=== PATIENT | male | born 2000 | race Caucasian/White ===

== ENCOUNTER 2019-12-27 06:04 | Emergency (ER) | payer MEDICAID, SELFPAY ==
--- NOTE | ~2019-12-27 | CT_ITS ---
EXAMINATION: CT abdomen pelvis w con DATE: 12/27/2019 07:27 INDICATION: Sepsis, abdominal pain and vomiting TECHNIQUE: Computed tomography (CT) of the abdomen and pelvis was performed back of Visipaque intrave nous contrast. Automated exposure control and iterative reconstruction technique were employed. The d ose-length product was 753.00 mGy-cm. COMPARISON: None FINDINGS: Scattered groundglass opacities throughout the bilateral lower lungs. Heart size is normal. No perica rdial or pleural effusion. Diffuse hepatic steatosis with focal sparing along the gallbladder fossa a nd more focal fat at the ligamentum teres. Gallbladder, spleen, pancreas, bilateral adrenal glands an d kidneys are normal. Fatty infiltration of the wall of the proximal colon likely related to body hab itus. There are few scattered colonic diverticula without adjacent inflammatory change to suggest div erticulitis. No bowel obstruction. Bladder is normal. No free intraperitoneal gas or fluid. No pathol ogically enlarged abdominal or pelvic lymphadenopathy. Mild lumbar dextrocurvature. IMPRESSION: 1. Groundglass opacities scattered throughout the bilateral lower lungs with differential including p neumonia, pulmonary edema and hypersensitivity pneumonitis. 2. Diffuse hepatic steatosis. Reviewed, dictated and finalized at location A. IMPRESSION: 1. Groundglass opacities scattered throughout the bilateral lower lungs with di fferential including pneumonia, pulmonary edema and hypersensitivity pneumoniti s. 2. Diffuse hepatic steatosis.
--- NOTE | ~2019-12-27 | XR_ITS ---
EXAMINATION: XR chest 1V portable DATE: 12/27/2019 06:54 INDICATION: Cough, heartburn, nausea and vomiting TECHNIQUE: frontal view of the chest was obtained. COMPARISON: Chest radiograph dated 12/19/2016 FINDINGS: Lung volumes are decreased with increased prominence of the bronchovascular markings. No focal airspa ce opacities, pleural effusion or pneumothorax. The cardiomediastinal silhouette is normal. Visualize d bones and soft tissues are unremarkable. IMPRESSION: 1. Increased prominence of the bronchovascular markings which is likely related to respiratory effort although differential would include mild pulmonary edema or bronchitis. Reviewed, dictated and finalized at location A.
[2019-12-27 06:11] VITALS: BP 132/79; PULSE 141; RESP 21; TEMP 36.3; O2SAT 96
--- NOTE | 2019-12-27 06:26 | ED.NAVMDI ---
HPI - Nausea/Vomiting/Diarrhea General Chief complaint: Nausea/Vomiting/Diarrhea <DO Glenn Valenzuela Last Filed: 12/27/19 06:33> Stated complaint: vomiting for days; fever <DO Glenn Valenzuela Last Filed: 12/27/19 06:33> Time Seen by Provider: 12/27/19 06:20 <Jacobo Hou DO - Last Filed: 12/27/19 06:33> Source: RN notes reviewed <Jacobo Hou DO - Last Filed: 12/27/19 06:33> History of Present Illness HPI Narrative: Patient presents emergency department from home for nausea and vomiting. Patient states symptoms began 3 days ago. States he is had numerous episodes of nausea and vomiting. Is been associated with subjective fevers as well as abdominal pain is described as cramping and diffuse throughout the abdomen. He states he has had a mild associated cough he denies any chest pain diarrhea or any other symptoms states he is taken no medications for the symptoms today. <DO Glenn Valenzuela Last Filed: 12/27/19 06:33> Related Data Allergies/Adverse reactions: Allergies Allergy/AdvReac Type Severity Reaction Status Date / Time No Known Allergies Allergy Verified 12/27/19 06:15 <DO Glenn Valenzuela Last Filed: 12/27/19 06:33> Review of Systems Review of Systems: Narrative: Gen.: Reports subjective fever ENT: Denies congestion Respiratory: Denies shortness of breath or cough CV: Denies chest pain or palpitations GI: See HPI denies burning, urgency, frequency or hematuria Musculoskeletal: Denies back pain or muscle pain Neuro: Denies numbness, tingling, weakness or focal weakness Skin: Denies rash Except as documented, all other systems reviewed and negative <DO Glenn Valenzuela Last Filed: 12/27/19 06:33> PMFSH Past Medical History Medical History: Medical History (Updated 12/27/19 @ 10:09 by Frieda Adame MD) Pulmonary embolism <DO Glenn Valenzuela Last Filed: 12/27/19 06:33> Social History Social History: Social History (Updated 12/27/19 @ 06:33 by Jacobo Hou DO) Smoking status: Never smoker Gender identity (if verbalized by the patient): Male <Jacobo Hou DO - Last Filed: 12/27/19 06:33> Exam Narrative: Exam Narrative: APPEARANCE: No acute distress, nontoxic, resting in bed HEENT: Normocephalic, atraumatic, OMM RESPIRATORY: No respiratory distress, clear to auscultation bilaterally with no rhonchi wheezing or rales CARDIOVASCULAR: Tachycardic and regular s murmur ABDOMINAL: Soft, nondistended, diffusely tender to palpation no rebound or guarding MUSCULOSKELETAl: Moves all extremities. No clubbing, cyanosis or edema. NEURO: Awake and alert. Following commands, speech normal, no focal deficits SKIN:: Warm, dry. Normal Color PSYCHIATRIC: Normal affect/mood <Jacobo Hou DO - Last Filed: 12/27/19 06:33> Course Vital Signs Vital signs: Vital Signs Temperature 36.3 C L 12/27/19 06:11 Pulse Rate 141 H 12/27/19 06:11 Respiratory Rate 21 H 12/27/19 06:11 Blood Pressure 132/79 12/27/19 06:11 Pulse Oximetry 96 12/27/19 06:11 Temperature 36.3 C L 12/27/19 06:11 Pulse Rate 101 H 12/27/19 08:13 Respiratory Rate 22 H 12/27/19 08:13 Blood Pressure 131/86 12/27/19 08:13 Pulse Oximetry 96 12/27/19 08:13 <Jacobo Hou DO - Last Filed: 12/27/19 06:33> Vital Signs Temperature 36.3 C L 12/27/19 06:11 Pulse Rate 141 H 12/27/19 06:11 Respiratory Rate 21 H 12/27/19 06:11 Blood Pressure 132/79 12/27/19 06:11 Pulse Oximetry 96 12/27/19 06:11 Temperature 36.3 C L 12/27/19 06:11 Pulse Rate 101 H 12/27/19 08:13 Respiratory Rate 22 H 12/27/19 08:13 Blood Pressure 131/86 12/27/19 08:13 Pulse Oximetry 96 12/27/19 08:13 <Frieda Adame MD - Last Filed: 09/11/20 10:09> MDM - Nausea/Vomiting/Diarrhea Differential Diagnosis Differential diagnosis: Likely food poisoning, gastroenteritis, drug-induced nausea and vomi
[2019-12-27 06:44] LABS: Basophils Absolute Auto 0.1 K/mm3 (0.0-0.1); Basophils Percent Auto 0.2 % (0.2-1.2); Hemoglobin 14.5 g/dL (14.0-18.0); Immature Granulocyte Absolute 0.16 K/mm3 (0.00-0.031); Immature Granulocyte Percent A 0.7 % (0-0.5); Lymphocytes Absolute Auto 1.85 K/mm3 (0.9-3.2); Lymphocytes Percent Auto 8.3 % (18.3-44.2); Mean Corpuscular HGB Conc 34.5 g/dl (32-36); Mean Corpuscular Hemoglobin 27.2 pg (26-34); Mean Corpuscular Volume 78.7 fl (80-100); Monocytes Absolute Auto 0.5 K/mm3 (0.1-0.6); Monocytes Percent Auto 2.3 % (2.6-8.5); Neutrophils Absolute Auto 19.7 K/mm3 (1.3-6.7); Neutrophils Percent Auto 88.5 % (45.5-73.1); Platelet Count Result 502 k/mm3 (150-375); Red Blood Count 5.34 M/mm3 (4.6-6.20); Red Cell Distribution Width 11.9 % (11.5-14.5); White Blood Count 22.3 K/mm3 (4.5-10.0)
[2019-12-27] MEDS: ONDANSETRON INJ 4 MG/2 ML VIAL IV PUSH (06:48)
[2019-12-27 06:49] LABS: Alanine Aminotransferase 22 U/L (4-50); Albumin Level 4.8 g/dL (3.5-5.1); Alkaline Phosphatase 115 U/L (38-126); Anion Gap 17 mmol/L (8-16); Aspartate Amino Transferase 30 U/L (17-59); Bilirubin,Total 0.9 mg/dL (0.2-1.3); Blood Urea Nitrogen 23 mg/dL (9-20); Calcium 9.8 mg/dL (8.4-10.2); Carbon Dioxide 18 mmol/L (22-30); Chloride 103 mmol/L (98-107); Estimated CRCL calculation 122 ml/min; Estimated Glomerular Filt Rate > 60; Glucose 153 mg/dL (75-110); Lipase 27 U/L (23-300); Potassium 3.3 mmol/L (3.4-5.0); Sodium 138 mmol/L (137-145)
[2019-12-27] MEDS: SODIUM CHLORIDE 0.9% IV 1,000 ML 999 ML IV CONT ×2 (06:52→08:13)
[2019-12-27 08:08] LABS: Add Urine Microscopic? YES; Appearance Urine Clear (Clear); Bilirubin Urine Negative (Negative); Blood Urine Negative (Negative); Color Urine Yellow (Yellow); Glucose Urine UA Negative (Negative); Ketones Urine 2+ mg/dL (Negative); Leukocyte Esterase Ur Negative LEU/UL (Negative); Mucus Urine Moderate /lpf; Nitrate Urine Negative (Negative); Protein Urine 1+ mg/dL (Negative); RBC Urine 0-2 /hpf (0-2); Squamous Epithelial Cell Urine Rare /hpf (Few); WBC Urine 0-3 /hpf
[2019-12-27 08:09] LABS: Specific Grav Ur > 1.060 (1.001-1.035)
[2019-12-27 08:13] VITALS: BP 131/86; PULSE 101; RESP 22; O2SAT 96
[2019-12-27 08:15] LABS: Lactic Acid Reflex 1.9 mmol/L (0.7-2.1)
[2019-12-27 09:15] LABS: Anion Gap 10 mmol/L (8-16); Blood Urea Nitrogen 19 mg/dL (9-20); Calcium 8.2 mg/dL (8.4-10.2); Carbon Dioxide 21 mmol/L (22-30); Chloride 108 mmol/L (98-107); Estimated CRCL calculation 170 ml/min; Estimated Glomerular Filt Rate > 60; Glucose 134 mg/dL (75-110); Potassium 3.5 mmol/L (3.4-5.0); Sodium 139 mmol/L (137-145)
[2019-12-28 13:40] LABS: SARS-CoV-2 RNA PCR Negative
== END 2019-12-27 10:08 | disposition home or self-care (01) ==
PROVIDERS: Emergency Medicine; Emergency Provider Emergency Medicine
DX: K52.9 Noninfective gastroenteritis and colitis, unspecified (principal); E86.0 Dehydration; R91.8 Other nonspecific abnormal finding of lung field; Z20.828 Contact with and (suspected) exposure to other viral communicable diseases
CPT/HCPCS: 36415; 71045; 74177; 80048; 80053; 81001; 83605; 83690; 85025; 87040; 87635; 96361; 96365; 96375; 99284; C9803; J0131; J2405; J7030; Q9967; U0003

== ENCOUNTER 2020-02-11 17:05 | Emergency (ER) | payer MEDICAID, SELFPAY ==
[2020-02-11 17:20] VITALS: BP 153/88; PULSE 100; RESP 18; TEMP 36.8; O2SAT 100
--- NOTE | 2020-02-11 18:54 | ED.GENADULT ---
HPI - General Adult General Chief complaint: Unspecified Stated complaint: bilateral foot pain Time Seen by Provider: 02/11/20 18:19 Source: patient and family History of Present Illness HPI narrative: 19-year-old male presents to emergency department for feeling of left foot coolness that started last night. Patient states he has never had this in the past before. He tried walking around to help with the symptoms. He has not taken any medications for the coolness. Patient denies any numbness or tingling. No current left leg pain. Denies any traumas or falls. Related Data Home Medications Medication Instructions Recorded Confirmed clonidine HCl 02/11/20 fluoxetine [Prozac] 40 mg PO DAILY 02/11/20 lorazepam 1 mg PO BID PRN 02/11/20 phenazopyridine [Azo] 02/11/20 tizanidine 2 mg PO TID PRN 02/11/20 Allergies Allergy/AdvReac Type Severity Reaction Status Date / Time No Known Allergies Allergy Verified 02/11/20 19:01 Review of Systems Review of Systems: Narrative: CONSTITUTIONAL: Denies fever, chills, or sweats. EYES: Denies visual changes, redness, or discharge. ENT: Denies rhinorrhea, congestion, sore throat, or otalgia. CARDIOVASCULAR: Denies chest pain, palpitations, or edema. RESPIRATORY: Denies cough or dyspnea. GASTROINTESTINAL: Denies abdominal pain, nausea, vomiting, or diarrhea. GENITOURINARY: Denies dysuria or hematuria. SKIN: Denies rash or itching. Left foot coolness feeling the skin MUSCULOSKELETAL: Denies back pain, joint pain, or myalgia. NEUROLOGIC: Denies headache, numbness, dizziness, or weakness. PSYCHIATRIC: Denies anxiety or depression. PMFSH Past Medical History Medical History Pulmonary embolism Social History Social History Smoking status: Never smoker Gender identity (if verbalized by the patient): Male Exam Narrative: Exam Narrative: GENERAL: Well-appearing, well-nourished, and in no acute distress. HEAD: Normocephalic, atraumatic. EYES: PERRLA and EOMI. ENT: Nares clear, no rhinorrhea or epistaxis. Mucous membranes moist. NECK: Supple. CHEST: Clear to auscultation. No respiratory distress. HEART: Regular rate and rhythm. No murmur heard. Normal peripheral pulses. ABDOMEN: Soft, nontender, nondistended, normal active bowel sounds. EXTREMITIES: Normal range of motion. No edema. SKIN: Warm, dry, no rash. NEURO: No focal deficits. Alert and oriented x3. PSYCH: Mild distress, anxious Course Vital Signs Vital signs: Vital Signs Temperature 36.8 C 02/11/20 17:20 Pulse Rate 100 02/11/20 17:20 Respiratory Rate 18 02/11/20 17:20 Blood Pressure 153/88 H 02/11/20 17:20 Pulse Oximetry 100 02/11/20 17:20 Temperature 36.7 C 02/11/20 20:00 Pulse Rate 99 02/11/20 20:00 Respiratory Rate 20 02/11/20 20:00 Blood Pressure 151/98 H 02/11/20 20:00 Pulse Oximetry 96 02/11/20 20:00 Medical Decision Making MDM Narrative Medical decision making narrative: 1929 -unremarkable physical exam of left foot. Patient has 2+ dorsalis pedis pulse of the left, capillary refill less than 2 seconds. Equal sensation to light touch of left foot bilaterally. No signs of vascular occlusion. Patient has full range of motion of the left lower extremity. Symptoms likely from vascular constriction that resolved. States he has an appointment with his medical provider on Monday. Counseled patient to return to emergency department if symptoms persist, worsen, or other concerns. Medical Records Medical records reviewed: Yes I reviewed the patient's medical records. Vital Signs Vital Signs: Vital Signs Temperature 36.8 C 02/11/20 17:20 Pulse Rate 100 02/11/20 17:20 Respiratory Rate 18 02/11/20 17:20 Blood Pressure 153/88 H 02/11/20 17:20 Pulse Oximetry 100 02/11/20 17:20 Temperature 36.7 C 02/11/20 20:00 Pulse Rate 99 02/11/20 20
[2020-02-11 19:00] VITALS: BP 151/99; PULSE 119; RESP 22; TEMP 36.8; O2SAT 95
[2020-02-11 19:08] VITALS: RESP 18; O2SAT 95
--- NOTE | 2020-02-11 19:13 | PC.NURSE ---
Patient requesting pain medication and is requesting the EDP to do a testicular exam.
[2020-02-11] MEDS: LORazepam (*CRX) 0.5 MG TABLET PO (19:19)
[2020-02-11 20:00] VITALS: BP 151/98; PULSE 99; RESP 20; TEMP 36.7; O2SAT 96
== END 2020-02-11 20:00 | disposition home or self-care (01) ==
PROVIDERS: Emergency Provider Emergency Medicine; PCP Internal Medicine
DX: R20.8 Other disturbances of skin sensation (principal); F41.9 Anxiety disorder, unspecified
CPT/HCPCS: 99283; A9270

== ENCOUNTER 2020-02-17 11:41 | Emergency (ER) | payer MEDICAID, SELFPAY ==
--- NOTE | ~2020-02-17 | US_ITS ---
EXAMINATION: US scrotum doppler DATE: 02/17/2020 13:00 INDICATION: Testicular pain TECHNIQUE: Testicular sonogram utilizing grayscale and Doppler COMPARISON: None. FINDINGS: The right testis measures 5 x 3.3 x 2.5 cm. The left testis measures 4.8 x 3.3 x 2.8 cm. Th ere is normal vascular flow to both testes. The right epididymis is normal with normal vascular flow. The left epididymis is normal with normal vascular flow. Small bilateral hydroceles are noted. IMPRESSION: 1. No sonographic correlate for the patient's symptoms. Reviewed, dictated and finalized at location A. TRICAL/INSTRUMENT TECHNICIAN
[2020-02-17 12:00] VITALS: BP 154/94; PULSE 124; RESP 24; TEMP 36.3; O2SAT 99
--- NOTE | 2020-02-17 12:41 | PC.NURSE ---
Pt to u/s via stretcher.
[2020-02-17 12:56] LABS: Add Urine Microscopic? YES; Appearance Urine Clear (Clear); Bilirubin Urine Negative (Negative); Blood Urine Negative (Negative); Color Urine Yellow (Yellow); Glucose Urine UA Negative (Negative); Ketones Urine 2+ mg/dL (Negative); Leukocyte Esterase Ur Negative LEU/UL (Negative); Nitrate Urine Negative (Negative); Protein Urine Negative (Negative); RBC Urine 0-2 /hpf (0-2); Specific Grav Ur 1.017 (1.001-1.035); Urobilinogen Urine Negative mg/dL (<2.0); WBC Urine 0-3 /hpf
--- NOTE | 2020-02-17 12:56 | ED.GENADULT ---
HPI - General Adult General Chief complaint: Urogenital-Male Stated complaint: would like his testicles looked at Time Seen by Provider: 02/17/20 12:09 Source: patient History of Present Illness HPI narrative: Patient is a 19 y/o male complaining intermittent bilateral testicular pain for last 2 weeks. He describes his pain as aching. There is no alleviating or exacerbating factor. He has no pain at this time. He denies any fever, chill, dysuria or discharge. He has some back pain. He states that he has not been eating or drinking for 1 1/2 days because he is so nervous about what's going on with his testicles. Related Data Home Medications Medication Instructions Recorded Confirmed clonidine HCl 02/11/20 fluoxetine [Prozac] 40 mg PO DAILY 02/11/20 lorazepam 1 mg PO BID PRN 02/11/20 phenazopyridine [Azo] 02/11/20 tizanidine 2 mg PO TID PRN 02/11/20 Allergies Allergy/AdvReac Type Severity Reaction Status Date / Time No Known Allergies Allergy Verified 02/17/20 12:05 Review of Systems Constitutional: Constitutional: Denies chills, Denies fever(s), Denies headache(s) and Denies weakness Eyes: Eyes: Denies blurry vision ENT: Denies headache(s) and Denies neck pain Cardiovascular: Cardiovascular: Denies chest pain and Denies dyspnea Respiratory: Respiratory: Denies cough and Denies dyspnea Gastrointestinal: Gastrointestinal: Denies abdominal pain, Denies diarrhea, Denies nausea and Denies vomiting Genitourinary: Genitourinary: Denies hematuria, Denies dysuria and Reports testicular pain Musculoskeletal: Musculoskeletal: Denies back pain and Denies neck pain Neurologic: Denies headache(s) and Denies weakness [facility] Past Medical History Medical History Pulmonary embolism Social History Social History Smoking status: Never smoker Gender identity (if verbalized by the patient): Male Exam Const: General: no acute distress and well developed Orientation/consciousness: oriented to person, oriented to place, oriented to time and patient oriented x3 HENMT: Head: normocephalic Ears: external ears normal General nose exam: Normal external nose present Eyes: General: appearance normal, both eyes and all related structures Conjunctivae: conjunctivae normal Neck: Neck: normal visual inspection and full ROM Chest: Chest palpation & inspection: normal inspection of the chest and no tenderness Resp: Effort & Inspection: normal respiratory effort Auscultation: clear to auscultation bilaterally Cardio: Rate: tachycardic Rhythm: regular rhythm GI: GI Palp: No abdominal tenderness and Yes Soft to palpation : Penis: Yes normal penis Scrotum: scrotum normal Testes: no masses and no testicular tenderness Skin: General skin exam: normal color and turgor normal Neuro: General: oriented to person, oriented to place, oriented to time and patient oriented x3 Cognition (Neuro): normal cognition Extrem: General: normal to inspection, full ROM and no pedal edema Psych: Appearance: grossly normal Mental Status: mental status grossly normal Affect: Anxious affect present Course Vital Signs Vital signs: Vital Signs Temperature 36.3 C L 02/17/20 12:00 Pulse Rate 124 H 02/17/20 12:00 Respiratory Rate 24 H 02/17/20 12:00 Blood Pressure 154/94 H 02/17/20 12:00 Pulse Oximetry 99 02/17/20 12:00 Temperature 36.3 C L 02/17/20 12:00 Pulse Rate 109 H 02/17/20 18:22 Respiratory Rate 16 02/17/20 18:22 Blood Pressure 143/97 H 02/17/20 18:22 Pulse Oximetry 98 02/17/20 18:22 Medical Decision Making Vital Signs Vital Signs: Vital Signs Temperature 36.3 C L 02/17/20 12:00 Pulse Rate 124 H 02/17/20 12:00 Respiratory Rate 24 H 02/17/20 12:00 Blood Pressure 154/94 H 02/17/20 12:00 Pulse Oximetry 99 02/17/20 12:00 Temperature 36.3 C L 02/17/20 12:00 Pulse
[2020-02-17 13:08] LABS: Basophils Percent Auto 0.3 % (0.2-1.2); Eosinophils Percent Auto 0.1 % (0-4.4); Hematocrit 45.2 % (42.0-52.0); Hemoglobin 15.8 g/dL (14.0-18.0); Immature Granulocyte Absolute 0.05 K/mm3 (0.00-0.031); Immature Granulocyte Percent A 0.4 % (0-0.5); Lymphocytes Absolute Auto 1.84 K/mm3 (0.9-3.2); Mean Corpuscular Hemoglobin 27.5 pg (26-34); Mean Corpuscular Volume 78.7 fl (80-100); Mean Platelet Volume 9.1 fl (7.4-10.4); Monocytes Absolute Auto 0.5 K/mm3 (0.1-0.6); Monocytes Percent Auto 4.4 % (2.6-8.5); Neutrophils Percent Auto 78.8 % (45.5-73.1); Platelet Count Result 404 k/mm3 (150-375); Red Blood Count 5.74 M/mm3 (4.6-6.20); White Blood Count 11.5 K/mm3 (4.5-10.0)
[2020-02-17 13:19] LABS: Anion Gap 19 mmol/L (8-16); Blood Urea Nitrogen 14 mg/dL (9-20); Calcium 10.3 mg/dL (8.4-10.2); Carbon Dioxide 16 mmol/L (22-30); Chloride 103 mmol/L (98-107); Estimated CRCL calculation 132 ml/min; Estimated Glomerular Filt Rate > 60; Glucose 145 mg/dL (75-110); Potassium 3.5 mmol/L (3.4-5.0); Sodium 138 mmol/L (137-145)
--- NOTE | 2020-02-17 13:42 | ECG_ITS ---
Measurements Intervals [place] Rate: 116 P: 36 [place]: 126 QRS: 55 QRSD: 78 T: 38 QT: 310 QTc: 431 Interpretive Statements SINUS TACHYCARDIA MINIMAL Q WAVES- INF/HIGH LAT LEADS CONSIDER ANTEROLATERAL INFARCT, AGE INDETERMINATE BORDERLINE ST-T WAVE ABNORMALITY- ANT/INF LEADS ABNORMAL ECG Electronically Signed On 02-17-2020 14:26:09 HIDE SPREADER by Arturo Ragsdale D.O.
[2020-02-17] MEDS: SODIUM CHLORIDE 0.9% IV 1,000 ML 999 ML IV CONT (13:55)
[2020-02-17 13:56] VITALS: BP 144/76; PULSE 118; RESP 18; O2SAT 100
[2020-02-17] MEDS: LORazepam INJ (*CRX) 2 MG/ML VIAL 1 MG IV PUSH (14:05)
[2020-02-17 15:22] VITALS: BP 118/99; PULSE 125; RESP 18; O2SAT 100
--- NOTE | 2020-02-17 15:27 | PC.NURSE ---
Called lab for TSH add on [id number]
--- NOTE | 2020-02-17 15:46 | PC.NURSE ---
called chem again, waiting call back about tsh test [phone]
[2020-02-17 16:06] VITALS: BP 139/79; PULSE 116; RESP 18; O2SAT 98
--- NOTE | 2020-02-17 16:40 | PC.NURSE ---
Called chem again (Opal), and added on the TSH [phone]
[2020-02-17 17:56] VITALS: BP 143/97; PULSE 109; RESP 16; O2SAT 98
[2020-02-17 18:22] VITALS: BP 143/97; PULSE 109; RESP 16; O2SAT 98
== END 2020-02-17 18:24 | disposition home or self-care (01) ==
PROVIDERS: Emergency Provider Emergency Medicine; PCP Internal Medicine
DX: N50.812 Left testicular pain (principal); N50.811 Right testicular pain; E86.0 Dehydration; I10 Essential (primary) hypertension; Z86.711 Personal history of pulmonary embolism; R00.0 Tachycardia, unspecified; R94.31 Abnormal electrocardiogram [ECG] [EKG]
CPT/HCPCS: 36415; 76870; 80048; 81001; 84443; 85025; 93005; 93976; 96361; 96374; 99284; J2060; J7030

== ENCOUNTER 2020-02-20 07:11 | Emergency (ER) | payer MEDICAID, SELFPAY ==
[2020-02-20] VITALS (17 sets, daily range): BP systolic 124–159; BP diastolic 70–95; PULSE 99–129; RESP 12–22; TEMP 36.9; O2SAT 95–100
--- NOTE | 2020-02-20 07:24 | ECG_ITS ---
Measurements Intervals [place] Rate: 127 P: 51 [place]: 122 QRS: 67 QRSD: 78 T: 55 QT: 320 QTc: 466 Interpretive Statements SINUS TACHYCARDIA MINIMAL Q WAVES- INFERIOR LEADS CONSIDER ANTEROLATERAL INFARCT, AGE INDETERMINATE BASELINE ARTIFACT- I, II, III, AVR, AVL, AVF ABNORMAL ECG Electronically Signed On 02-20-2020 9:15:39 DISASTER RECOVERY ANALYST by Arturo Ragsdale D.O.
[2020-02-20] MEDS: SODIUM CHLORIDE 0.9% IV 1,000 ML 999 ML IV CONT (07:52)
[2020-02-20] MEDS: LORazepam INJ (*CRX) 2 MG/ML VIAL 0.5 MG IV PUSH (07:52)
[2020-02-20 08:09] LABS: Basophils Absolute Auto 0.1 K/mm3 (0.0-0.1); Basophils Percent Auto 0.4 % (0.2-1.2); Eosinophils Percent Auto 0.3 % (0-4.4); Hematocrit 46.1 % (42.0-52.0); Hemoglobin 15.8 g/dL (14.0-18.0); Immature Granulocyte Absolute 0.06 K/mm3 (0.00-0.031); Immature Granulocyte Percent A 0.5 % (0-0.5); Lymphocytes Absolute Auto 1.81 K/mm3 (0.9-3.2); Lymphocytes Percent Auto 15.8 % (18.3-44.2); Mean Corpuscular HGB Conc 34.3 g/dl (32-36); Mean Corpuscular Hemoglobin 27.7 pg (26-34); Mean Corpuscular Volume 80.9 fl (80-100); Mean Platelet Volume 9.1 fl (7.4-10.4); Monocytes Absolute Auto 0.7 K/mm3 (0.1-0.6); Monocytes Percent Auto 5.7 % (2.6-8.5); Neutrophils Absolute Auto 8.9 K/mm3 (1.3-6.7); Neutrophils Percent Auto 77.3 % (45.5-73.1); Platelet Count Result 417 k/mm3 (150-375); Red Cell Distribution Width 13.2 % (11.5-14.5); White Blood Count 11.5 K/mm3 (4.5-10.0)
[2020-02-20 08:21] LABS: Anion Gap 18 mmol/L (8-16); Blood Urea Nitrogen 23 mg/dL (9-20); Calcium 10.3 mg/dL (8.4-10.2); Carbon Dioxide 19 mmol/L (22-30); Chloride 101 mmol/L (98-107); Estimated CRCL calculation 121 ml/min; Estimated Glomerular Filt Rate > 60; Glucose 129 mg/dL (75-110); Potassium 3.8 mmol/L (3.4-5.0); Sodium 138 mmol/L (137-145)
--- NOTE | 2020-02-20 08:47 | PC.NURSE ---
pt ambulated to the bathroom with no difficulty
--- NOTE | 2020-02-20 08:55 | ED.ARRPALP ---
HPI - Arrhythmia/Palpitations General Chief Complaint: Arrhythmia/Palpitations Stated Complaint: heart racing Time Seen by Provider: 02/20/20 07:19 History of Present Illness HPI narrative: Patient is a 19-year-old male who presents ER with heart palpitations. Reports he feels like his heart has been racing for the last 2 days. No chest pain or chest pressure. No nausea or vomiting. Associate with bad anxiety. Reports it all began after he ran out of his anxiety medication. [facility]. No alleviating factors. Related Data Home Medications Medication Instructions Recorded Confirmed clonidine HCl 02/11/20 fluoxetine [Prozac] 40 mg PO DAILY 02/11/20 lorazepam 1 mg PO BID PRN 02/11/20 phenazopyridine [Azo] 02/11/20 tizanidine 2 mg PO TID PRN 02/11/20 Allergies Allergy/AdvReac Type Severity Reaction Status Date / Time No Known Allergies Allergy Verified 02/20/20 07:36 Review of Systems Review of Systems: All systems reviewed & are unremarkable except as noted in HPI and below Constitutional: Constitutional: Denies chills, Denies fever(s) and Denies weakness ENT: Denies nasal congestion and Denies sore throat Cardiovascular: Cardiovascular: Reports rapid heart rate, Denies radiating jaw, neck or arm pain and Denies slow heart rate Respiratory: Respiratory: Denies cough and Denies dyspnea Gastrointestinal: Gastrointestinal: Denies abdominal pain, Denies nausea and Denies vomiting Psychiatric: Psychiatric: Reports anxiety PMFSH Past Medical History Medical History (Updated 02/20/20 @ 09:45 by Tanner Ma MD) Anxiety Pulmonary embolism Surgical History Surgical History (Updated 02/20/20 @ 08:56 by Tanner Ma MD) No pertinent past surgical history Social History Social History Smoking status: Never smoker Gender identity (if verbalized by the patient): Male Exam Narrative: Exam Narrative: GENERAL: Anxious-appearing, well-nourished, and in no acute distress. HEAD: Normocephalic, atraumatic. CHEST: Clear to auscultation. No respiratory distress. HEART: Tachycardic and regular. No murmur heard. Normal peripheral pulses. ABDOMEN: Soft, nontender, nondistended. EXTREMITIES: Normal range of motion. No edema. SKIN: Warm, dry, no rash. NEURO: Alert and oriented x3. PSYCH: Anxious mood with slightly pressured speech. Course Course Emergency Course: Patient hydrated informed of results. Symptoms felt to be related to his anxiety. Heart rate currently 102 bpm. Instructed him to follow-up with his mental health provider this afternoon. Vital Signs Vital signs: Vital Signs Temperature 98.5 F 02/20/20 07:15 Pulse Rate 125 H 02/20/20 07:15 Respiratory Rate 16 02/20/20 07:15 Blood Pressure 159/95 H 02/20/20 07:15 Pulse Oximetry 100 02/20/20 07:15 Temperature 98.5 F 02/20/20 07:15 Pulse Rate 125 H 02/20/20 07:15 Respiratory Rate 16 02/20/20 07:15 Blood Pressure 159/95 H 02/20/20 07:15 Pulse Oximetry 100 02/20/20 07:15 MDM - Arrhythmia/Palpitations Lab Data Result diagrams: 02/20/20 07:54 02/20/20 07:54 Labs: Lab Results 02/20/20 02/20/20 Range/Units 07:54 07:54 WBC 11.5 H (4.5-10.0) K/mm3 RBC 5.70 (4.6-6.20) M/mm3 Hgb 15.8 (14.0-18.0) g/dL Hct 46.1 (42.0-52.0) % MCV 80.9 (80-100) fl MCH 27.7 (26-34) pg MCHC 34.3 (32-36) g/dl RDW 13.2 (11.5-14.5) % Plt Count 417 H (150-375) k/mm3 MPV 9.1 (7.4-10.4) fl Immature Gran % (Auto) 0.5 (0-0.5) % Neut % (Auto) 77.3 H (45.5-73.1) % Lymph % (Auto) 15.8 L (18.3-44.2) % Dawes % (Auto) 5.7 (2.6-8.5) % Eos % (Auto) 0.3 (0-4.4) % Baso % (Auto) 0.4 (0.2-1.2) % Lymph # (Auto) 1.81 (0.9-3.2) K/mm3 Dawes # (Auto) 0.7 H (0.1-0.6) K/mm3 Eos # (Auto) 0.0 (0-0.3) K/mm
== END 2020-02-20 09:56 | disposition home or self-care (01) ==
PROVIDERS: Emergency Provider Emergency Medicine; PCP Internal Medicine
DX: R00.2 Palpitations (principal); F41.9 Anxiety disorder, unspecified; R00.0 Tachycardia, unspecified; Z86.711 Personal history of pulmonary embolism; R94.31 Abnormal electrocardiogram [ECG] [EKG]
CPT/HCPCS: 36415; 80048; 85025; 93005; 96361; 96374; 99284; J2060; J7030

== ENCOUNTER 2020-02-20 17:52 | Emergency (ER) | payer MEDICAID, SELFPAY ==
--- NOTE | ~2020-02-20 | CT_ITS ---
EXAMINATION: CTA chest PE protocol DATE: 02/20/2020 18:42 INDICATION: Shortness of breath. Chest pain. TECHNIQUE: Computed tomography angiography (CTA) of the chest was performed with 100 mL Omnipaque-350 intravenous contrast timed to evaluate the pulmonary arteries. Coronal maximum intensity projection 3D-reconstructions were created by the technologist. Automated exposure control and iterative reconst ruction technique were employed. The dose-length product was 486.86 mGy-cm. COMPARISON: Chest CT 12/19/16 FINDINGS: The lungs demonstrate mild dependent atelectasis. No pleural effusion. The heart size is no rmal. No pericardial effusion. There is no pulmonary embolus. There is diffuse hepatic steatosis. 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 IMPRESSION: 1. No pulmonary embolus. 2. Diffuse hepatic steatosis. Reviewed, dictated and finalized at location A. L [facility]
[2020-02-20 17:56] VITALS: BP 133/100; PULSE 112; RESP 18; TEMP 36.5; O2SAT 98
[2020-02-20 18:17] LABS: Basophils Absolute Auto 0.1 K/mm3 (0.0-0.1); Basophils Percent Auto 0.4 % (0.2-1.2); Eosinophils Absolute Auto 0.1 K/mm3 (0-0.3); Eosinophils Percent Auto 0.3 % (0-4.4); Hematocrit 44.3 % (42.0-52.0); Hemoglobin 15.3 g/dL (14.0-18.0); Immature Granulocyte Absolute 0.05 K/mm3 (0.00-0.031); Immature Granulocyte Percent A 0.3 % (0-0.5); Lymphocytes Absolute Auto 4.15 K/mm3 (0.9-3.2); Lymphocytes Percent Auto 28.1 % (18.3-44.2); Mean Corpuscular HGB Conc 34.5 g/dl (32-36); Mean Platelet Volume 8.8 fl (7.4-10.4); Monocytes Absolute Auto 0.8 K/mm3 (0.1-0.6); Monocytes Percent Auto 5.7 % (2.6-8.5); Neutrophils Absolute Auto 9.6 K/mm3 (1.3-6.7); Neutrophils Percent Auto 65.2 % (45.5-73.1); Platelet Count Result 401 k/mm3 (150-375); Red Blood Count 5.47 M/mm3 (4.6-6.20); Red Cell Distribution Width 13.1 % (11.5-14.5); White Blood Count 14.8 K/mm3 (4.5-10.0)
[2020-02-20 18:30] LABS: Partial Thromboplastin Time 24.5 SECONDS (22.3-36.8)
[2020-02-20 18:31] LABS: Alanine Aminotransferase 37 U/L (4-50); Alkaline Phosphatase 89 U/L (38-126); Anion Gap 17 mmol/L (8-16); Aspartate Amino Transferase 26 U/L (17-59); Bilirubin,Total 0.8 mg/dL (0.2-1.3); Blood Urea Nitrogen 20 mg/dL (9-20); Calcium 10.1 mg/dL (8.4-10.2); Carbon Dioxide 20 mmol/L (22-30); Chloride 105 mmol/L (98-107); Estimated CRCL calculation 119 ml/min; Estimated Glomerular Filt Rate > 60; Glucose 99 mg/dL (75-110); Sodium 142 mmol/L (137-145)
[2020-02-20 18:34] LABS: Estimated CRCL calculation 119 ml/min; Estimated Glomerular Filt Rate > 60
[2020-02-20 18:39] LABS: INR 1.1; Prothrombin Time 14.3 Seconds (11.1-14.7)
--- NOTE | 2020-02-20 19:17 | ED.CHESTPAIN ---
HPI - Chest Pain General Chief Complaint: Chest Pain Stated Complaint: CP, Here for a CT scan per Dr Ma Time Seen by Provider: 02/20/20 18:21 Source: patient and family Mode of arrival: ambulatory Limitations: no limitations History of Present Illness HPI narrative: 19-year-old with a history of hypertension, anxiety disorder, PE here with complaints of left-sided chest pain on and off for past few weeks he also mentions that her pain is radiating into his left arm. Patient states that his pain in his chest last for a few seconds to a minute. Pain not related to any exertion. He denies any fever or chills. Patient was seen earlier this morning for the same. MD complaint: chest pain Onset (ago): week(s) Timing of current episode: episodic and now resolved Pain location: substernal and left chest Pain radiation: left arm Quality: tightness Relieving factors: nothing Exacerbating factors: nothing Risk Factors Coronary artery disease risk factors: none Thoracic aortic dissection risk factors: none Related Data Home Medications Medication Instructions Recorded Confirmed clonidine HCl 02/11/20 fluoxetine [Prozac] 40 mg PO DAILY 02/11/20 lorazepam 1 mg PO BID PRN 02/11/20 phenazopyridine [Azo] 02/11/20 tizanidine 2 mg PO TID PRN 02/11/20 Allergies Allergy/AdvReac Type Severity Reaction Status Date / Time No Known Allergies Allergy Verified 02/20/20 07:36 Review of Systems Review of Systems: All systems reviewed & are unremarkable except as noted in HPI and below Constitutional: Constitutional: Reports no additional constitutional complaints Eyes: Eyes: Reports as per HPI Cardiovascular: Cardiovascular: Reports no additional cardiovascular complaints Respiratory: Respiratory: Reports no additional respiratory complaints Gastrointestinal: Gastrointestinal: Reports as per HPI Musculoskeletal: Musculoskeletal: Reports no additional musculoskeletal complaints PMFSH Past Medical History Medical History Anxiety Pulmonary embolism Surgical History Surgical History No pertinent past surgical history Social History Social History Smoking status: Never smoker Gender identity (if verbalized by the patient): Male Exam Narrative: Exam Narrative: GENERAL: Well-appearing, well-nourished, and in no acute distress appears to be very anxious. HEAD: Normocephalic, atraumatic. EYES: PERRLA and EOMI. NECK: Supple. CHEST: Clear to auscultation. No respiratory distress. HEART: Tachycardic ABDOMEN: Soft, nontender, nondistended, normal active bowel sounds. EXTREMITIES: Normal range of motion. No edema. SKIN: Warm, dry, no rash. NEURO: No focal deficits. Alert and oriented x3. Course Course Emergency Course: Inform patient about his lab work, CT findings at this time his symptoms appear to be more anxiety Vital Signs Vital signs: Vital Signs Temperature 36.5 C 02/20/20 17:56 Pulse Rate 112 H 02/20/20 17:56 Respiratory Rate 18 02/20/20 17:56 Blood Pressure 133/100 H 02/20/20 17:56 Pulse Oximetry 98 02/20/20 17:56 Temperature 36.5 C 02/20/20 17:56 Pulse Rate 112 H 02/20/20 17:56 Respiratory Rate 18 02/20/20 17:56 Blood Pressure 133/100 H 02/20/20 17:56 Pulse Oximetry 98 02/20/20 17:56 MDM - Chest Pain Lab Data Result diagrams: 02/20/20 18:10 02/20/20 18:28 Labs: Lab Results 02/20/20 02/20/20 02/20/20 Range/Units 18:10 18:10 18:10 WBC 14.8 H (4.5-10.0) K/mm3 RBC 5.47 (4.6-6.20) M/mm3 Hgb 15.3 (14.0-18.0) g/dL Hct 44.3 (42.0-52.0) % MCV 81.0 (80-100) fl MCH 28.0 (26-34) pg MCHC 34.5 (32-36) g/dl RDW 13.1 (11.5-14.5) % Plt Count 401 H (150-375) k/mm3 MPV 8.8 (7.4-10.4) fl Immature Gran % (Auto) 0.3 (0-0.5) %
[2020-02-20 19:25] VITALS: BP 128/88; PULSE 110; RESP 20; O2SAT 97
== END 2020-02-20 19:25 | disposition home or self-care (01) ==
PROVIDERS: Emergency Medicine; Emergency Provider Family Medicine; PCP Internal Medicine
DX: R00.2 Palpitations (principal); R07.89 Other chest pain; I10 Essential (primary) hypertension; F41.9 Anxiety disorder, unspecified; K76.0 Fatty (change of) liver, not elsewhere classified; Z86.711 Personal history of pulmonary embolism
CPT/HCPCS: 36415; 71275; 80048; 80053; 85025; 85610; 85730; 93005; 96361; 96374; 99284; J2060; J7030; Q9967

== ENCOUNTER 2020-02-25 15:05 | Emergency (ER) | payer MEDICAID, SELFPAY ==
[2020-02-25 15:35] VITALS: BP 141/89; PULSE 90; RESP 18; TEMP 36.8; O2SAT 100
== END 2020-02-25 16:00 | disposition left against medical advice (07) ==
LOC: ANHED 17:10
PROVIDERS: PCP Internal Medicine
DX: N50.9 Disorder of male genital organs, unspecified (principal)
CPT/HCPCS: 99199

== ENCOUNTER 2020-02-26 07:41 | Emergency (ER) | payer MEDICAID, SELFPAY ==
[2020-02-26 07:53] VITALS: BP 138/79; PULSE 93; RESP 20; TEMP 36.8; O2SAT 100
--- NOTE | 2020-02-26 08:06 | ED.GENADULT ---
HPI - General Adult General Chief complaint: Unspecified Stated complaint: mult c/o Time Seen by Provider: 02/26/20 08:06 Source: patient Mode of arrival: ambulatory Limitations: no limitations History of Present Illness HPI narrative: Patient complaining of bumps on the scrotum and butt cheeks. Also complaining of muscle aches in the chest and back and legs. Patient denies any fever, chills, nausea, vomiting, headache, sore throat, coughing, shortness of breath, exposure to anybody with known COVID-19. Patient was started on Paxil yesterday. Patient under tremendous amount of stress. Patient quit marijuana use 3 weeks ago. Patient also complaining of intermittent palpitation Related Data Home Medications Medication Instructions Recorded Confirmed clonidine HCl 02/11/20 fluoxetine [Prozac] 40 mg PO DAILY 02/11/20 lorazepam 1 mg PO BID PRN 02/11/20 tizanidine 2 mg PO TID PRN 02/11/20 Allergies Allergy/AdvReac Type Severity Reaction Status Date / Time No Known Allergies Allergy Verified 02/26/20 08:01 Review of Systems Review of Systems: Narrative: CONSTITUTIONAL: Denies fever, chills, or sweats. EYES: Denies visual changes, redness, or discharge. ENT: Denies rhinorrhea, congestion, sore throat, or otalgia. CARDIOVASCULAR: Denies chest pain, palpitations, or edema. RESPIRATORY: Denies cough or dyspnea. GASTROINTESTINAL: Denies abdominal pain, nausea, vomiting, or diarrhea. GENITOURINARY: Denies dysuria or hematuria. SKIN: Denies rash or itching. MUSCULOSKELETAL: Denies back pain, joint pain, or myalgia. NEUROLOGIC: Denies headache, numbness, or weakness. PSYCHIATRIC: Denies anxiety or depression. PMFSH Past Medical History Medical History Anxiety Pulmonary embolism Surgical History Surgical History No pertinent past surgical history Social History Social History Smoking status: Never smoker Gender identity (if verbalized by the patient): Male Exam Narrative: Exam Narrative: General appearance: Well-developed, well-nourished Skin: Multiple bumps on the upper thigh bilaterally, and right side of scrotum looks like folliculitis also on the buttocks. Head: Normocephalic, nontraumatic Eyes: Clear conjunctiva ENT: Oropharynx normal, ears normal, nose normal Neck: Supple, nontender Chest and respiratory: Airway patent, no respiratory distress, no accessory muscle use Heart: Regular rate/rhythm Abdomen: Soft, nontender, no organomegaly, quiet bowel sounds Vascular: Normal peripheral pulses, normal capillary refill. Musculoskeletal: Normal range of motion, nontender back Neurologic: Alert and oriented ?3, SONOGRAM TECHNICIAN is normal as tested, no gross motor deficit Course Course Emergency Course: Stable Vital Signs Vital signs: Vital Signs Temperature 36.8 C 02/26/20 07:53 Pulse Rate 93 02/26/20 07:53 Respiratory Rate 02/26/20 07:53 Blood Pressure 138/79 02/26/20 07:53 Pulse Oximetry 100 02/26/20 07:53 Temperature 36.8 C 02/26/20 07:53 Pulse Rate 93 02/26/20 07:53 Respiratory Rate 02/26/20 07:53 Blood Pressure 138/79 02/26/20 07:53 Pulse Oximetry 100 02/26/20 07:53 Medical Decision Making [facility] Narrative Medical decision making narrative: Folliculitis, skin staph infection is my concern. Patient will be discharged on clindamycin. General body aches, palpitation, restlessness high likely secondary to anxiety/depression. Patient started on Paxil yesterday. My plan to discharge him on Vistaril. Differential Diagnosis Differential Christine
== END 2020-02-26 08:20 | disposition home or self-care (01) ==
PROVIDERS: Emergency Provider Emergency Medicine; PCP Internal Medicine
DX: L73.9 Follicular disorder, unspecified (principal); F41.9 Anxiety disorder, unspecified
CPT/HCPCS: 99283

== ENCOUNTER 2020-03-26 14:59 | Emergency (ER) | payer OTHER, SELFPAY ==
--- NOTE | ~2020-03-26 | CT_ITS ---
EXAMINATION: CT abdomen pelvis w con DATE: 03/26/2020 16:30 INDICATION: Left lower quadrant abdominal pain TECHNIQUE: Computed tomography (CT) of the abdomen and pelvis was performed with 100 cc Omnipaque 350 intravenous contrast. Automated exposure control and iterative reconstruction technique were employe d. Exam dose: 931.01 mGy-cm total exam DLP. COMPARISON: None. FINDINGS: Normal heart size. No pericardial or pleural effusion. There is prominent hepatic steatosis, with minimal pericholecystic sparing. No hepatic space-occupyin g mass lesion or bile duct dilatation. The gallbladder is unremarkable. No pancreatic mass lesion, calcification or ductal dilatation. Normal splenic size. Normal morphology of the adrenal glands. No renal mass lesion or urinary tract calculus or hydroureteronephrosis. The urinary bladder, prostat e gland and seminal vesicles are unremarkable. Normal caliber of the abdominal aorta. No intraperitoneal or retroperitoneal or pelvic mass lesion or adenopathy or ascites. Normal appendix. No bowel obstruction, bowel wall thickening, pneumatosis or intraperitoneal free air Included skeletal structures are unremarkable.. IMPRESSION: Hepatic steatosis Reviewed, dictated and finalized at [facility]. Reviewed, dictated and finalized at location [facility]. HEN AND COUNTER WORKER IMPRESSION: Hepatic steatosis
[2020-03-26 15:07] VITALS: BP 151/76; PULSE 98; RESP 16; TEMP 36.4; O2SAT 99
[2020-03-26 15:25] LABS: Basophils Absolute Auto 0.1 K/mm3 (0.0-0.1); Basophils Percent Auto 0.5 % (0.2-1.2); Eosinophils Absolute Auto 0.2 K/mm3 (0-0.3); Eosinophils Percent Auto 1.1 % (0-4.4); Hematocrit 46.2 % (42.0-52.0); Hemoglobin 15.5 g/dL (14.0-18.0); Immature Granulocyte Absolute 0.07 K/mm3 (0.00-0.031); Immature Granulocyte Percent A 0.4 % (0-0.5); Lymphocytes Absolute Auto 2.68 K/mm3 (0.9-3.2); Lymphocytes Percent Auto 15.6 % (18.3-44.2); Mean Corpuscular HGB Conc 33.5 g/dl (32-36); Mean Corpuscular Hemoglobin 27.1 pg (26-34); Mean Corpuscular Volume 80.6 fl (80-100); Mean Platelet Volume 9.1 fl (7.4-10.4); Monocytes Absolute Auto 0.9 K/mm3 (0.1-0.6); Monocytes Percent Auto 5.4 % (2.6-8.5); Neutrophils Absolute Auto 13.2 K/mm3 (1.3-6.7); Platelet Count Result 417 k/mm3 (150-375); Red Blood Count 5.73 M/mm3 (4.6-6.20); White Blood Count 17.1 K/mm3 (4.5-10.0)
[2020-03-26 15:34] LABS: INR 0.9
[2020-03-26 15:35] LABS: Partial Thromboplastin Time 23.8 SECONDS (22.3-36.8)
[2020-03-26 15:37] LABS: Albumin Level 4.9 g/dL (3.5-5.1); Alkaline Phosphatase 114 U/L (38-126); Anion Gap 16 mmol/L (8-16); Aspartate Amino Transferase 42 U/L (17-59); Bilirubin,Total 0.8 mg/dL (0.2-1.3); Blood Urea Nitrogen 14 mg/dL (9-20); Calcium 10.2 mg/dL (8.4-10.2); Carbon Dioxide 21 mmol/L (22-30); Chloride 101 mmol/L (98-107); Estimated CRCL calculation 119 ml/min; Estimated Glomerular Filt Rate > 60; Glucose 137 mg/dL (75-110); Potassium 3.5 mmol/L (3.4-5.0); Sodium 138 mmol/L (137-145)
[2020-03-26 15:48] LABS: Alanine Aminotransferase 56 U/L (4-50)
--- NOTE | 2020-03-26 16:12 | ED.GENADULT ---
HPI - General Adult General Chief complaint: Abdominal Pain Stated complaint: bloody stool Time Seen by Provider: 03/26/20 15:35 Source: patient and old records reviewed Mode of arrival: ambulatory Limitations: no limitations History of Present Illness HPI narrative: Patient is a 20-year-old male who presents to emergency department for evaluation of abdominal cramping for the last day with rectal bleeding today patient notes bright red blood in the toilet patient has been concerned that he possibly was constipated but notes that he ended up having loose stool this morning with bright red blood patient on arrival denies any fever chills nausea vomiting or similar occurrence in the past patient on arrival resting comfortably. Patient with strong history of anxiety as well Related Data Home Medications Medication Instructions Recorded Confirmed clonidine HCl 02/11/20 fluoxetine [Prozac] 40 mg PO DAILY 02/11/20 lorazepam 1 mg PO BID PRN 02/11/20 tizanidine 2 mg PO TID PRN 02/11/20 Allergies Allergy/AdvReac Type Severity Reaction Status Date / Time No Known Allergies Allergy Verified 03/26/20 15:10 Review of Systems Review of Systems: All systems reviewed & are unremarkable except as noted in HPI and below PMFSH Past Medical History Medical History Anxiety Pulmonary embolism Surgical History Surgical History No pertinent past surgical history Social History Social History Smoking status: Never smoker Gender identity (if verbalized by the patient): Male Exam Narrative: Exam Narrative: GENERAL: Well-appearing, well-nourished, and in no acute distress. HEAD: Normocephalic, atraumatic. EYES: PERRLA and EOMI. ENT: Nares clear, no rhinorrhea or epistaxis. Mucous membranes moist. CHEST: Clear to auscultation. No respiratory distress. No wheezes rales or rhonchi HEART: Regular rate and rhythm. No murmur heard. Normal peripheral pulses. ABDOMEN: Soft, periumbilical and left lower quadrant tenderness to palpation, nondistended, normal active bowel sounds. EXTREMITIES: Normal range of motion. No edema. SKIN: Warm, dry, no rash. NEURO: No focal deficits. Alert and oriented x3. PSYCH: Normal mood and affect. Course Course Emergency Course: Patient in the room in no distress hemodynamically stable will be discharged home at this time advised to follow with primary care and gastroenterology no high risk changes in the blood work or imaging hemodynamically stable ABCs intact was hydrated and given medications in the emergency department Vital Signs Vital signs: Vital Signs Temperature 97.5 F L 03/26/20 15:07 Pulse Rate 98 03/26/20 15:07 Respiratory Rate 16 03/26/20 15:07 Blood Pressure 151/76 H 03/26/20 15:07 Pulse Oximetry 99 03/26/20 15:07 Temperature 97.5 F L 03/26/20 15:07 Pulse Rate 102 H 03/26/20 17:21 Respiratory Rate 16 03/26/20 15:07 Blood Pressure 110/61 03/26/20 17:21 Pulse Oximetry 99 03/26/20 15:07 Medical Decision Making MDM Narrative Medical decision making narrative: Patient with GI bleeding of on certain etiology hemodynamically stable felt appropriate for outpatient reevaluation by gastroenterology and primary care which she has existing relationship with noting that he will follow up as instructed and is also been given reasons to return Vital Signs Vital Signs: Vital Signs Temperature 97.5 F L 03/26/20 15:07 Pulse Rate 98 03/26/20 15:07 Respiratory Rate 16 03/26/20 15:07 Blood Pressure 151/76 H 03/26/20 15:07 Pulse Oximetry 99 03/26/20 15:07 Temperature 97.5 F L 03/26/20 15:07 Pulse Rate 102 H 03/26/20 17:21 Respiratory Rate 16 03/26/20 15:07 Blood Pressure 110/61 03/26/20 17:21 Pulse Oximetry 99 03/26/20 15:07 Lab Data Result diagrams:
[2020-03-26 17:07] LABS: Add Urine Microscopic? NO; Appearance Urine Clear (Clear); Bilirubin Urine Negative (Negative); Blood Urine Negative (Negative); Color Urine Straw (Yellow); Glucose Urine UA Negative (Negative); Ketones Urine Negative (Negative); Leukocyte Esterase Ur Negative LEU/UL (Negative); Nitrate Urine Negative (Negative); Protein Urine Negative (Negative); Urobilinogen Urine Negative mg/dL (<2.0)
[2020-03-26 17:19] LABS: Specific Grav Ur 1.058 (1.001-1.035)
[2020-03-26 17:20] VITALS: BP 129/70; PULSE 78
[2020-03-26 17:21] VITALS: BP 109/68; BP 110/61; PULSE 102; PULSE 92
[2020-03-26] MEDS: FAMOTIDINE 20 MG/2 ML VIAL IV PUSH (17:33)
[2020-03-26] MEDS: SODIUM CHLORIDE 0.9% IV 1,000 ML 999 ML IV CONT (17:33)
[2020-03-26 18:09] VITALS: BP 141/69; PULSE 85; RESP 17; O2SAT 98
== END 2020-03-26 18:11 | disposition home or self-care (01) ==
PROVIDERS: Emergency Provider Emergency Medicine; PCP Internal Medicine
DX: K62.5 Hemorrhage of anus and rectum (principal); Z86.711 Personal history of pulmonary embolism; F41.9 Anxiety disorder, unspecified; K76.0 Fatty (change of) liver, not elsewhere classified
CPT/HCPCS: 36415; 74177; 80053; 81003; 85025; 85610; 85730; 86850; 86900; 86901; 96365; 96375; 99284; J0131; J7030; Q9967

== ENCOUNTER 2020-12-28 13:51 | Outpatient (CLI) | payer OTHER, SELFPAY | END 2020-12-28 13:52 | disposition home or self-care (01) | LOC: ANHLAB 01-07 10:34 | PROVIDERS: PCP Internal Medicine; Visit Provider Internal Medicine Gastroenterology | DX: R10.84 Generalized abdominal pain (principal); R19.7 Diarrhea, unspecified | CPT/HCPCS: 87045; 87324; 87427; 89055 ==

== ENCOUNTER 2021-01-22 15:34 | Outpatient (CLI) | payer OTHER, SELFPAY ==
[2021-01-22 16:19] LABS: Alanine Aminotransferase 58 U/L (4-50); Alkaline Phosphatase 95 U/L (38-126); Aspartate Amino Transferase 41 U/L (17-59); Bilirubin Indirect 0.1 mg/dL (0-1.1); Bilirubin,Total 0.3 mg/dL (0.2-1.3)
== END 2021-01-22 15:35 | disposition home or self-care (01) ==
LOC: ANHLAB 15:37
PROVIDERS: PCP Internal Medicine; Visit Provider Internal Medicine Gastroenterology
DX: R16.0 Hepatomegaly, not elsewhere classified (principal)
CPT/HCPCS: 36415; 82040; 82247; 82248; 84075; 84450; 84460

== ENCOUNTER 2021-04-17 08:57 | Emergency (ER) | payer OTHER, SELFPAY ==
--- NOTE | ~2021-04-17 | CT_ITS ---
EXAMINATION: CT abdomen pelvis wo con DATE: 04/17/2021 11:53 INDICATION: Low abdominal pain radiating to the flank. TECHNIQUE: Computed tomography (CT) of the abdomen and pelvis was performed without intravenous contr ast. Automated exposure control and iterative reconstruction technique were employed. The dose-length product was 1069.88 mGy-cm. COMPARISON: CT abdomen and pelvis 03/26/2020 FINDINGS: The visualized portions of the lung bases are clear without pneumonia or pleural effusion. The heart size is normal. No pericardial effusion. There is diffuse hepatic steatosis. The gallbladde r, spleen, pancreas, adrenal glands, and kidneys are normal. There is no urolithiasis. There are no d ilated loops of bowel. The appendix is normal. There are no pathologically enlarged lymph nodes. Ther e is no free intraperitoneal fluid. The bones are unremarkable. IMPRESSION: 1. Diffuse hepatic steatosis. Reviewed, dictated and finalized at location [facility]. YARD DERRICK OPERATOR
[2021-04-17 09:25] VITALS: BP 144/120; PULSE 91; RESP 16; TEMP 36.6; O2SAT 96
[2021-04-17 10:53] LABS: Glucose Point of Care 96 mg/dl (65-105)
[2021-04-17 10:58] LABS: Add Urine Microscopic? NO; Appearance Urine Clear (Clear); Bilirubin Urine Negative (Negative); Blood Urine Negative (Negative); Color Urine Yellow (Yellow); Glucose Urine UA Negative (Negative); Ketones Urine Negative (Negative); Leukocyte Esterase Ur Negative LEU/UL (Negative); Nitrate Urine Negative (Negative); Protein Urine Negative (Negative); Specific Grav Ur 1.013 (1.001-1.035); Urobilinogen Urine Negative mg/dL (<2.0)
[2021-04-17 11:22] LABS: Basophils Absolute Auto 0.1 K/mm3 (0.0-0.1); Basophils Percent Auto 0.8 % (0.2-1.2); Eosinophils Absolute Auto 0.1 K/mm3 (0-0.3); Eosinophils Percent Auto 0.7 % (0-4.4); Hematocrit 45.5 % (42.0-52.0); Hemoglobin 15.2 g/dL (14.0-18.0); Immature Granulocyte Absolute 0.04 K/mm3 (0.00-0.031); Immature Granulocyte Percent A 0.5 % (0-0.5); Lymphocytes Absolute Auto 2.18 K/mm3 (0.9-3.2); Lymphocytes Percent Auto 25.1 % (18.3-44.2); Mean Corpuscular HGB Conc 33.4 g/dl (32-36); Mean Corpuscular Hemoglobin 25.6 pg (26-34); Mean Corpuscular Volume 76.6 fl (80-100); Mean Platelet Volume 9.4 fl (7.4-10.4); Monocytes Absolute Auto 0.5 K/mm3 (0.1-0.6); Monocytes Percent Auto 5.5 % (2.6-8.5); Neutrophils Absolute Auto 5.9 K/mm3 (1.3-6.7); Neutrophils Percent Auto 67.4 % (45.5-73.1); Platelet Count Result 393 k/mm3 (150-375); Red Blood Count 5.94 M/mm3 (4.6-6.20); Red Cell Distribution Width 13.6 % (11.5-14.5); White Blood Count 8.7 K/mm3 (4.5-10.0)
--- NOTE | 2021-04-17 11:23 | ED.MALEGU ---
HPI - Male Genitourinary General Chief complaint: Urogenital-Male Stated complaint: excessive urinating Time Seen by Provider: 04/17/21 10:43 Source: patient Mode of arrival: ambulatory Limitations: no limitations History of Present Illness HPI Narrative: This is a 21 year old male that presents to the ER for urinary frequency. Noted since this morning. Also reports some left lower abdominal pain radiating to the flank. Denies any concern for STDs or abnormal urethral discharge. Denies fever, dysuria, vomiting, or hematuria. Related Data Home Medications Medication Instructions Recorded Confirmed clonidine HCl 02/11/20 fluoxetine [Prozac] 40 mg PO DAILY 02/11/20 lorazepam 1 mg PO BID PRN 02/11/20 tizanidine 2 mg PO TID PRN 02/11/20 Allergies Allergy/AdvReac Type Severity Reaction Status Date / Time No Known Allergies Allergy Verified 04/17/21 10:49 Review of Systems Review of Systems: CONSTITUTIONAL: Denies fever GASTROINTESTINAL: Reports abdominal pain. Denies nausea, vomiting GENITOURINARY: Denies dysuria or hematuria. All systems reviewed & are unremarkable except as noted in HPI and below PMFSH Past Medical History Medical History Anxiety Pulmonary embolism Surgical History Surgical History No pertinent past surgical history Social History Social History Smoking status: Never smoker Gender identity (if verbalized by the patient): Male Exam Narrative: GENERAL: Well-appearing, well-nourished, and in no acute distress. HEAD: Normocephalic, atraumatic. EYES: EOMI. CHEST: Clear to auscultation. No respiratory distress. No wheezes rales or rhonchi HEART: Regular rate and rhythm. No murmur heard. Normal peripheral pulses. ABDOMEN: Soft, nondistended, normal active bowel sounds. Mild tenderness to palpation in the left lower abdomen, without guarding. No CVA tenderness EXTREMITIES: Normal range of motion. No edema. SKIN: Warm, dry, no rash. NEURO: No focal deficits. Alert and oriented x3. PSYCH: Normal mood and affect Course Vital Signs Vital signs: Vital Signs Temperature 97.8 F 04/17/21 09:25 Pulse Rate 91 04/17/21 09:25 Respiratory Rate 16 04/17/21 09:25 Blood Pressure 144/120 H 04/17/21 09:25 Pulse Oximetry 96 04/17/21 09:25 Temperature 97.8 F 04/17/21 09:25 Pulse Rate 91 04/17/21 09:25 Respiratory Rate 16 04/17/21 09:25 Blood Pressure 144/120 H 04/17/21 09:25 Pulse Oximetry 96 04/17/21 09:25 MDM - Male Genitourinary MDM Narrative Medical decision making narrative: Patient presents to the emergency department for urinary frequency and some lower abdominal discomfort. He is afebrile and nontoxic-appearing. CBC and metabolic panel without concerning findings. Blood sugar is normal. UA without evidence of infection. CT scan of the abdomen and pelvis shows diffuse hepatic steatosis. No acute findings. He denies any concern for STDs. Patient was updated on case findings. He was instructed to continue to monitor symptoms and follow-up with his primary doctor. He is stable and felt appropriate for further outpatient evaluation. He was given warnings to return to the ER Lab Data Attestation: I reviewed the patient's lab results. Result diagrams: 04/17/21 11:07 04/17/21 11:07 Labs: Lab Results 04/17/21 04/17/21 04/17/21 Range/Units 10:47 10:48 11:07 WBC 8.7 (4.5-10.0) K/mm3 RBC 5.94 (4.6-6.20) M/mm3 Hgb 15.2 (14.0-18.0) g/dL Hct 45.5 (42.0-52.0) % MCV 76.6 L (80-100) fl MCH 25.6 L (26-34) pg MCHC 33.4 (32-36) g/dl RDW 13.6 (11.5-14.5) % Plt Count 393 H (150-375) k/mm3 MPV 9.4 (7.4-10.4) fl Immature Gran % (Auto) 0.5 (0-0.5) % Neut % (Auto) 67.4 (45.5-73.1) % Lymph % (Auto) 25
[2021-04-17 11:28] LABS: Anion Gap 14 mmol/L (8-16); Blood Urea Nitrogen 9 mg/dL (9-20); Calcium 10.4 mg/dL (8.4-10.2); Carbon Dioxide 21 mmol/L (22-30); Chloride 107 mmol/L (98-107); Estimated CRCL calculation 118 ml/min; Estimated Glomerular Filt Rate > 60; Glucose 109 mg/dL (65-110); Potassium 3.9 mmol/L (3.4-5.0); Sodium 142 mmol/L (137-145)
[2021-04-17] MEDS: KETOROLAC 30 MG/ML VIAL (*BKC) IM (12:08)
[2021-04-17 13:47] VITALS: BP 147/89; PULSE 90; RESP 18; O2SAT 97
== END 2021-04-17 13:48 | disposition home or self-care (01) ==
PROVIDERS: Physician Assistant; Emergency Provider Emergency Medicine; PCP Internal Medicine
DX: R35.0 Frequency of micturition (principal); F41.9 Anxiety disorder, unspecified
CPT/HCPCS: 36415; 74176; 80048; 81003; 82948; 85025; 96372; 99284; J1885

== ENCOUNTER 2021-05-22 03:23 | Emergency (ER) | payer OTHER, SELFPAY ==
--- NOTE | ~2021-05-22 | XR_ITS ---
XR chest 1V portable INDICATION: Covid exposure. Shortness of breath and cough. TECHNIQUE: 2 view chest. FINDINGS: Comparison to multiple prior studies sequentially, with oldest reviewed study dated 2016. There is mild bilateral interstitial prominence and peribronchial cuffing. There is no focal consoli dation, pleural effusion, or pneumothorax. The cardiomediastinal silhouette is normal. IMPRESSION: 1. Findings most consistent with bronchiolitis versus an atypical or viral pneumonia. Reviewed, dictated and finalized at location [facility]. C CONSULTANT IMPRESSION: 1. Findings most consistent with bronchiolitis versus an atypical or viral pne [facility].
[2021-05-22 03:26] VITALS: BP 146/94; PULSE 119; RESP 20; TEMP 36.5; O2SAT 100
--- NOTE | 2021-05-22 04:02 | ECG_ITS ---
Measurements Intervals [place] Rate: 86 P: 47 SD: 134 QRS: 53 QRSD: 90 T: 65 QT: 356 QTc: 428 Interpretive Statements SINUS RHYTHM INCOMPLETE RIGHT BUNDLE BRANCH BLOCK BORDERLINE ST-T WAVE ABNORMALITY- ANTEROLAT/INF LEADS BASELINE ARTIFACT- I, II, III, AVR, AVL, AVF, V1-V6 BORDERLINE ECG Electronically Signed On 05-22-2021 7:11:42 PRIVATE TUTOR by Arturo Ragsdale D.O.
--- NOTE | 2021-05-22 04:03 | ED.GENADULT ---
HPI - General Adult General Chief complaint: Unspecified Stated complaint: numbness and tingling everywhere Time Seen by Provider: 05/22/21 03:40 History of Present Illness HPI narrative: 21-year-old male presents to the emergency department for evaluation of anxiety. Patient does have history of anxiety. Patient states he also smokes marijuana approximately every hour, daily. Patient is currently living with multiple people in his home who have Covid. Patient was concerned that he had Covid. Patient states he began to have worsening anxiety and patient states he developed numbness and tingling of his hands along with perioral numbness and tingling. Upon arrival to the emerge department patient is anxious. Related Data Home Medications Medication Instructions Recorded Confirmed clonidine HCl 02/11/20 fluoxetine [Prozac] 40 mg PO DAILY 02/11/20 lorazepam 1 mg PO BID PRN 02/11/20 tizanidine 2 mg PO TID PRN 02/11/20 Allergies Allergy/AdvReac Type Severity Reaction Status Date / Time No Known Allergies Allergy Verified 04/17/21 10:49 Review of Systems Review of Systems: CONSTITUTIONAL: Denies fever, chills, or sweats. EYES: Denies visual changes, redness, or discharge. ENT: Denies rhinorrhea, congestion, sore throat, or otalgia. CARDIOVASCULAR: Denies chest pain, palpitations, or edema. RESPIRATORY: Denies cough or dyspnea. GASTROINTESTINAL: Denies abdominal pain, nausea, vomiting, or diarrhea. GENITOURINARY: Denies dysuria or hematuria. SKIN: Denies rash or itching. MUSCULOSKELETAL: Denies back pain, joint pain, or myalgia. NEUROLOGIC: Does report perioral numbness with tingling of his hands PSYCHIATRIC: Does admit to having history of anxiety. All systems reviewed & are unremarkable except as noted in HPI and below PMFSH Past Medical History Medical History Anxiety Pulmonary embolism Surgical History Surgical History No pertinent past surgical history Social History Social History Smoking status: Never smoker Gender identity (if verbalized by the patient): Male Exam Narrative: APPEARANCE: Well appearing, anxious HEAD: normocephalic, atraumatic. EYES: PERRLA/EOMI, conjunctivae clear. NECK: Supple. No adenopathy, no masses. RESPIRATORY: Airway patent, respirations nonlabored. Clear to auscultation bilaterally, no rales, rhonchi, wheezing. CARDIOVASCULAR: Regular rate and rhythm without murmurs rubs or gallops. ABDOMINAL: Soft, nontender, nondistended, normal bowel sounds MUSCULOSKELETAL: Moves all extremities. Strength/ROM intact, No edema, No calf tenderness. NEURO: Alert. Cranial nerves II through XII intact. Good gait. Good coordination SKIN: Warm, dry. Normal Color PSYCHIATRIC: Patient was anxious but was consoled Course Course Emergency Course: Patient felt improved during his stay in the emergency room. Patient was informed on the status of the chest x-ray. Patient was also informed to quarantine due to high suspicion of his having Covid. Patient was educated on reasons to return to the emerge part. Patient was also informed to decrease his THC use. All questions and concerns were addressed. Patient was in no distress at time of discharge from the emerge department. Vital Signs Vital signs: Vital Signs Temperature 97.7 F 05/22/21 03:26 Pulse Rate 119 H 05/22/21 03:26 Respiratory Rate 20 05/22/21 03:26 Blood Pressure 146/94 H 05/22/21 03:26 Pulse Oximetry 100 05/22/21 03:26 Temperature 97.7 F 05/22/21 03:26 Pulse Rate 95 05/22/21 06:16 Respiratory Rate 18 05/22/21 06:16 Blood Pressure 137/86 05/22/21 06:16 Pulse Oximetry 100 05/22/21 06:16 Medical Decision Making Vital Signs Vital Signs: Vital Signs Temperature 97.7 F 05/22/21 03:26 Pulse Rate 119 H 05/22/21 03:26 Respirator
[2021-05-22] MEDS: SODIUM CHLORIDE 0.9% IV 1,000 ML 999 ML IV CONT (04:37)
--- NOTE | 2021-05-22 04:53 | PC.NURSE ---
pt states he drove himself and is unable to get a ride home, per EDP fifi not giving ativan due to risk with driving. Remaining ativan wasted with charge nurse Nadiya garcia.
[2021-05-22 06:16] VITALS: BP 137/86; PULSE 95; RESP 18; O2SAT 100
[2021-05-22 16:55] LABS: SARS-CoV-2 RNA PCR Positive
== END 2021-05-22 06:10 | disposition home or self-care (01) ==
PROVIDERS: Emergency Provider Emergency Medicine; PCP Internal Medicine
DX: U07.1 COVID-19 (principal); F41.9 Anxiety disorder, unspecified; Z86.711 Personal history of pulmonary embolism; R91.8 Other nonspecific abnormal finding of lung field
CPT/HCPCS: 71045; 93005; 96360; 99283; C9803; J7030; U0003; U0005

== ENCOUNTER 2021-05-22 07:39 | Emergency (ER) | payer OTHER, SELFPAY ==
[2021-05-22 08:05] VITALS: BP 159/83; PULSE 116; RESP 18; TEMP 37.1; O2SAT 99
--- NOTE | 2021-05-22 08:12 | ED.BACK ---
HPI - Back Pain/Injury General Chief Complaint: Back Pain/Injury Stated Complaint: back pain Time Seen by Provider: 05/22/21 07:55 Source: patient History of Present Illness HPI Narrative: Patient presents with concern for blood clots. Ports he had bilateral PEs when he was 16. His primary complaint today mid back pain that is been present for the past few days and appears to be getting worse. His pain is achy, constant with moving around, no radiation. He does not member any specific injuries to his back denies any shortness of breath or chest pain currently. Denies recent surgeries or hospitalizations denies recent trauma or long travel. Related Data Home Medications Medication Instructions Recorded Confirmed clonidine HCl 02/11/20 fluoxetine [Prozac] 40 mg PO DAILY 02/11/20 lorazepam 1 mg PO BID PRN 02/11/20 tizanidine 2 mg PO TID PRN 02/11/20 Allergies Allergy/AdvReac Type Severity Reaction Status Date / Time No Known Allergies Allergy Verified 04/17/21 10:49 Review of Systems Review of Systems: CONSTITUTIONAL: Denies fever, chills, or sweats. EYES: Denies visual changes, redness, or discharge. ENT: Denies rhinorrhea, congestion, sore throat, or otalgia. CARDIOVASCULAR: Denies chest pain, palpitations, or edema. RESPIRATORY: Denies cough or dyspnea. GASTROINTESTINAL: Denies abdominal pain, nausea, vomiting, or diarrhea. GENITOURINARY: Denies dysuria or hematuria. SKIN: Denies rash or itching. MUSCULOSKELETAL: Denies joint pain, or myalgia. NEUROLOGIC: Denies headache, numbness, dizziness, or weakness. PSYCHIATRIC: Denies anxiety or depression. All systems reviewed & are unremarkable except as noted in HPI and below PMFSH Past Medical History Medical History Anxiety Pulmonary embolism Surgical History Surgical History No pertinent past surgical history Social History Social History Smoking status: Never smoker Gender identity (if verbalized by the patient): Male Exam Narrative: GENERAL: Well-appearing, well-nourished, and in no acute distress. HEAD: Normocephalic, atraumatic. EYES: PERRLA and EOMI. ENT: Nares clear, no rhinorrhea or epistaxis. Mucous membranes moist. NECK: Supple. No masses. No JVD CHEST: Clear to auscultation. No respiratory distress. No wheezes rales or rhonchi HEART: Regular tachycardia. No murmur heard. Normal peripheral pulses. ABDOMEN: Soft, nontender, nondistended, normal active bowel sounds. EXTREMITIES: Normal range of motion. No edema. SKIN: Warm, dry, no rash. NEURO: No focal deficits. Alert and oriented x3. PSYCH: Normal mood and affect. Course Reevaluation(s) Reevaluation #1: Patient resting comfortably feels improved all results and plan reviewed with patient. Patient is comfortable outpatient plan. Date: 05/22/21 Time: 09:37 Vital Signs Vital signs: Vital Signs Temperature 37.1 C 05/22/21 08:05 Pulse Rate 116 H 05/22/21 08:05 Respiratory Rate 18 05/22/21 08:05 Blood Pressure 159/83 H 05/22/21 08:05 Pulse Oximetry 99 05/22/21 08:05 Temperature 37.1 C 05/22/21 08:05 Pulse Rate 91 05/22/21 10:17 Respiratory Rate 18 05/22/21 10:17 Blood Pressure 129/89 05/22/21 10:17 Pulse Oximetry 99 05/22/21 10:17 MDM - Back Pain/Injury MDM Narrative Medical decision making narrative: H&P as above, vss, pt looks clinically well, exam reassuring, labs clinically unremarkable, img possible bronchitis, additional labs/img considered, symptomatic relief available as needed, on reevaluation pt continues to looks clinically well. Suspect soft tissue injury versus pleural irritation for bronchitis, dns pneumonia, severe sepsis, PE, dissection plan to tx/monitor as op w/ pcm f/u findings/plan discussed with pt, pt agree/comfortable with plan, return precautions given Lab
--- NOTE | 2021-05-22 08:14 | ECG_ITS ---
Measurements Intervals [place] Rate: 97 P: 29 MS: 134 QRS: 32 QRSD: 87 T: 12 QT: 340 QTc: 433 Interpretive Statements SINUS RHYTHM EARLY PRECORDIAL R/S TRANSITION MINIMAL Q WAVES- ANTEROLAT/HIGH LAT LEADS BORDERLINE ST-T WAVE ABNORMALITY- ANT/INF LEADS BORDERLINE ECG Electronically Signed On 05-22-2021 18:07:38 GUEST SERVICES MANAGER by Arturo Ragsdale D.O.
[2021-05-22 08:24] LABS: Basophils Percent Auto 0.4 % (0.2-1.2); Eosinophils Percent Auto 0.2 % (0-4.4); Hematocrit 41.6 % (42.0-52.0); Hemoglobin 13.8 g/dL (14.0-18.0); Immature Granulocyte Absolute 0.01 K/mm3 (0.00-0.031); Immature Granulocyte Percent A 0.2 % (0-0.5); Lymphocytes Absolute Auto 0.62 K/mm3 (0.9-3.2); Lymphocytes Percent Auto 12.5 % (18.3-44.2); Mean Corpuscular HGB Conc 33.2 g/dl (32-36); Mean Corpuscular Hemoglobin 25.2 pg (26-34); Mean Corpuscular Volume 76.1 fl (80-100); Mean Platelet Volume 9.3 fl (7.4-10.4); Monocytes Absolute Auto 0.7 K/mm3 (0.1-0.6); Monocytes Percent Auto 14.9 % (2.6-8.5); Neutrophils Absolute Auto 3.6 K/mm3 (1.3-6.7); Neutrophils Percent Auto 71.8 % (45.5-73.1); Platelet Count Result 330 k/mm3 (150-375); Red Blood Count 5.47 M/mm3 (4.6-6.20); Red Cell Distribution Width 13.9 % (11.5-14.5)
[2021-05-22] MEDS: KETOROLAC 15 MG/ML VIAL (*BKC) IV PUSH (08:27)
[2021-05-22] MEDS: SODIUM CHLORIDE 0.9% IV 1,000 ML 999 ML IV CONT (08:27)
[2021-05-22 08:36] LABS: Alanine Aminotransferase 33 U/L (4-50); Albumin Level 4.9 g/dL (3.5-5.1); Alkaline Phosphatase 101 U/L (38-126); Anion Gap 14 mmol/L (8-16); Aspartate Amino Transferase 35 U/L (17-59); Bilirubin,Total 0.7 mg/dL (0.2-1.3); Blood Urea Nitrogen 17 mg/dL (9-20); Calcium 9.8 mg/dL (8.4-10.2); Carbon Dioxide 18 mmol/L (22-30); Chloride 106 mmol/L (98-107); Estimated CRCL calculation 118 ml/min; Estimated Glomerular Filt Rate > 60; Glucose 117 mg/dL (65-110); Potassium 3.6 mmol/L (3.4-5.0); Sodium 138 mmol/L (137-145)
[2021-05-22 08:39] LABS: D Dimer 0.44 ug/mL (<0.48)
[2021-05-22 10:17] VITALS: BP 129/89; PULSE 91; RESP 18; O2SAT 99
== END 2021-05-22 10:00 | disposition home or self-care (01) ==
PROVIDERS: Emergency Provider Emergency Medicine; PCP Internal Medicine
DX: M54.6 Pain in thoracic spine (principal); F41.9 Anxiety disorder, unspecified; Z86.711 Personal history of pulmonary embolism; R94.31 Abnormal electrocardiogram [ECG] [EKG]
CPT/HCPCS: 36415; 71045; 80053; 85025; 85380; 93005; 96360; 96361; 96374; 99283; 99284; C9803; J1885; J7030; U0003; U0005

== ENCOUNTER 2021-05-24 06:47 | Emergency (ER) | payer OTHER, SELFPAY ==
--- NOTE | ~2021-05-24 | XR_ITS ---
EXAMINATION: XR chest 1V portable DATE: 05/24/2021 07:27 INDICATION: Shortness of breath. COVID positive. Fever. TECHNIQUE: frontal view of the chest was obtained. COMPARISON: Chest radiograph dated 05/22/2021 FINDINGS: The lungs are clear with no focal airspace opacities, pulmonary edema, pleural effusion or pneumothor ax. The cardiomediastinal silhouette is normal. IMPRESSION: 1. No acute cardiopulmonary disease. Reviewed, dictated and finalized at location A. T ROCK APPLIER
[2021-05-24 06:48] VITALS: BP 144/81; PULSE 101; RESP 22; TEMP 36.6; O2SAT 100
--- NOTE | 2021-05-24 07:08 | ECG_ITS ---
Measurements Intervals [place] Rate: 87 P: 46 VA: 135 QRS: 63 QRSD: 90 T: 43 QT: 356 QTc: 430 Interpretive Statements SINUS RHYTHM INCOMPLETE RIGHT BUNDLE BRANCH BLOCK NONSPECIFIC T-WAVE ABNORMALITY- ANTERIOR LEADS BORDERLINE ECG Electronically Signed On 05-24-2021 7:47:32 BRUSH CLEARING LABORER by Arturo Ragsdale D.O.
[2021-05-24 07:24] VITALS: BP 127/75; PULSE 94; RESP 26; O2SAT 99
[2021-05-24 07:28] LABS: Basophils Percent Auto 0.8 % (0.2-1.2); Eosinophils Percent Auto 0.8 % (0-4.4); Hematocrit 42.2 % (42.0-52.0); Hemoglobin 14.5 g/dL (14.0-18.0); Immature Granulocyte Absolute 0.01 K/mm3 (0.00-0.031); Immature Granulocyte Percent A 0.2 % (0-0.5); Lymphocytes Absolute Auto 1.64 K/mm3 (0.9-3.2); Lymphocytes Percent Auto 32.7 % (18.3-44.2); Mean Corpuscular HGB Conc 34.4 g/dl (32-36); Mean Corpuscular Hemoglobin 25.7 pg (26-34); Mean Corpuscular Volume 74.7 fl (80-100); Mean Platelet Volume 9.6 fl (7.4-10.4); Monocytes Absolute Auto 0.5 K/mm3 (0.1-0.6); Monocytes Percent Auto 9.6 % (2.6-8.5); Neutrophils Absolute Auto 2.8 K/mm3 (1.3-6.7); Neutrophils Percent Auto 55.9 % (45.5-73.1); Platelet Count Result 353 k/mm3 (150-375); Red Blood Count 5.65 M/mm3 (4.6-6.20); Red Cell Distribution Width 14.1 % (11.5-14.5)
[2021-05-24 07:39] LABS: Alanine Aminotransferase 32 U/L (4-50); Albumin Level 4.8 g/dL (3.5-5.1); Alkaline Phosphatase 108 U/L (38-126); Anion Gap 17 mmol/L (8-16); Aspartate Amino Transferase 42 U/L (17-59); Bilirubin,Total 0.7 mg/dL (0.2-1.3); Blood Urea Nitrogen 19 mg/dL (9-20); Calcium 9.7 mg/dL (8.4-10.2); Carbon Dioxide 12 mmol/L (22-30); Chloride 109 mmol/L (98-107); Estimated CRCL calculation 119 ml/min; Estimated Glomerular Filt Rate > 60; Glucose 116 mg/dL (65-110); Potassium 3.2 mmol/L (3.4-5.0); Sodium 138 mmol/L (137-145)
--- NOTE | 2021-05-24 07:40 | ED.URI ---
HPI - URI/Sore Throat General Chief Complaint: Shortness of Breath/Dyspnea Stated Complaint: + covid, sob Time Seen by Provider: 05/24/21 07:07 Source: patient Mode of arrival: ambulatory Limitations: no limitations History of Present Illness HPI Narrative: Patient is a 21-year-old male complaining of shortness of breath, cough, fatigue, body aches, fever that started 4 days ago after testing positive for Covid. Patient was seen here twice in 1 day on 05/22 for the same complaints, this is his 3rd ER visit in the past week for the same complaint. Patient denies any chest pain, abdominal pain, nausea, vomiting or diarrhea. Related Data Home Medications Medication Instructions Recorded Confirmed clonidine HCl 02/11/20 fluoxetine [Prozac] 40 mg PO DAILY 02/11/20 lorazepam 1 mg PO BID PRN 02/11/20 tizanidine 2 mg PO TID PRN 02/11/20 Allergies Allergy/AdvReac Type Severity Reaction Status Date / Time No Known Allergies Allergy Verified 05/24/21 06:50 [facility] Past Medical History Medical History Anxiety Pulmonary embolism Surgical History Surgical History No pertinent past surgical history Social History Social History Smoking status: Never smoker Gender identity (if verbalized by the patient): Male Exam Const: General: cooperative, healthy appearing, comfortable, no acute distress, well developed, alert and awake; No confusion Orientation/consciousness: oriented to person, oriented to place, oriented to time, patient oriented x3 and No confusion Limitations: no limitations HENMT: Head: normal to inspection, normocephalic and atraumatic Ears: hearing grossly normal bilaterally, TM normal on the right and TM normal on the left General nose exam: Normal external nose present, Normal nares present and No nasal discharge present Face and sinus: normal facial exam Mouth: Yes Normal oral and palatal mucosa present, Yes lip normal, Yes tongue normal and Yes oropharynx normal Throat: posterior oropharynx normal, tonsils normal and uvula midline Eyes: General: appearance normal, both eyes and all related structures Pupils: Equal, round and reactive pupils present EOM: EOMs intact bilaterally Neck: Neck: normal visual inspection, full ROM, no lymphadenopathy and no meningeal signs Chest: Chest palpation & inspection: normal inspection of the chest Resp: Effort & Inspection: normal respiratory effort, able to speak in complete sentences, no respiratory distress and not tachypneic Auscultation: clear to auscultation bilaterally, no crackles, no rales, no rhonchi and no wheezes Cardio: Rate: regular rate Rhythm: regular rhythm GI: Inspection: normal to inspection GI Palp: No abdominal tenderness, Yes Soft to palpation, No Tenderness to palpation present (GI), No Guarding due to palpation present (GI), No Rigid due to palpation and No Rebound tenderness present Auscultation: normal bowel sounds : General: Yes no CVA tenderness Back/Spine/Pelvis: Back: no CVA tenderness Skin: General skin exam: normal color, no rashes or lesions noted, elasticity normal and turgor normal Neuro: General: oriented to person, oriented to place, oriented to time, patient oriented x3, tone normal, moves all extremities, Normal light touch and pain sensation, no meningeal signs, no focal motor deficits, CN's II-XI intact bilaterally and No confusion Cranial nerves: Yes Equal, round and reactive pupils present Speech: No Abnormal speech present Sensory Exam: No Sensory deficit (Neuro) Extrem: General: normal to inspection, full ROM and capillary refill normal Psych: Appearance: grossly normal and well kempt Mental Status: mental status grossly normal Speech and movement: Normal speech and movement present Affect: normal affect Attitude: cooperative Thought process
[2021-05-24 07:47] LABS: NT Pro B Type Natriuretic Pept 33 pg/mL (5-100)
[2021-05-24 08:32] LABS: D Dimer < 0.27 ug/mL (<0.48)
[2021-05-24] MEDS: POTASSIUM CHLORIDE 20 MEQ PACKET (FOR LIQUID) 40 MEQ PO (09:28)
[2021-05-24 09:29] VITALS: BP 118/78; PULSE 97; RESP 18; O2SAT 100
== END 2021-05-24 09:29 | disposition home or self-care (01) ==
PROVIDERS: Emergency Provider Emergency Medicine; PCP Internal Medicine
DX: U07.1 COVID-19 (principal); E87.6 Hypokalemia; F41.9 Anxiety disorder, unspecified; Z86.711 Personal history of pulmonary embolism; I45.10 Unspecified right bundle-branch block; R94.31 Abnormal electrocardiogram [ECG] [EKG]
CPT/HCPCS: 36415; 71045; 80053; 83880; 85025; 85380; 93005; 99283; A9270

== ENCOUNTER 2021-05-31 09:41 | Emergency (ER) | payer OTHER, SELFPAY ==
--- NOTE | ~2021-05-31 | XR_ITS ---
EXAMINATION: XR chest 1V portable INDICATION: Cough TECHNIQUE: Portable AP chest at 1032 hours COMPARISON: 05/24/2021 FINDINGS: There are patchy bilateral airspace opacities. No pleural effusion or pneumothorax is ident ified. The cardiomediastinal silhouette is normal. IMPRESSION: 1. Patchy bilateral airspace opacities, likely pneumonia. Reviewed, dictated and finalized at location A. R RELATIONS REPRESENTATIVE
[2021-05-31 09:53] VITALS: BP 133/83; PULSE 89; RESP 20; TEMP 36.8; O2SAT 98
[2021-05-31 11:13] LABS: Basophils Percent Auto 0.5 % (0.2-1.2); Eosinophils Absolute Auto 0.1 K/mm3 (0-0.3); Eosinophils Percent Auto 1.2 % (0-4.4); Hematocrit 42.4 % (42.0-52.0); Hemoglobin 14.5 g/dL (14.0-18.0); Immature Granulocyte Absolute 0.02 K/mm3 (0.00-0.031); Immature Granulocyte Percent A 0.2 % (0-0.5); Lymphocytes Absolute Auto 3.11 K/mm3 (0.9-3.2); Mean Corpuscular HGB Conc 34.2 g/dl (32-36); Mean Corpuscular Hemoglobin 25.7 pg (26-34); Mean Platelet Volume 9.3 fl (7.4-10.4); Monocytes Absolute Auto 0.6 K/mm3 (0.1-0.6); Monocytes Percent Auto 6.8 % (2.6-8.5); Neutrophils Absolute Auto 4.4 K/mm3 (1.3-6.7); Neutrophils Percent Auto 53.3 % (45.5-73.1); Platelet Count Result 439 k/mm3 (150-375); Red Blood Count 5.65 M/mm3 (4.6-6.20); Red Cell Distribution Width 14.8 % (11.5-14.5); White Blood Count 8.2 K/mm3 (4.5-10.0)
[2021-05-31] MEDS: FAMOTIDINE 20 MG/2 ML VIAL IV PUSH (11:13)
[2021-05-31] MEDS: LORazepam INJ (*CRX) 2 MG/ML VIAL 1 MG IV PUSH (11:13)
--- NOTE | 2021-05-31 11:13 | ED.GENADULT ---
HPI - General Adult General Chief complaint: Anxiety Stated complaint: tingling all over, anxiety Time Seen by Provider: 05/31/21 09:58 Source: patient and RN notes reviewed Mode of arrival: ambulatory Limitations: no limitations History of Present Illness HPI narrative: Patient is a 21-year-old male who presents with concern for possible peptic ulcer patient has history of severe anxiety he notes that he has been very anxious has follow-up with his primary care tomorrow Dr. Santiago patient denies vomiting diarrhea melena rectal bleeding he notes discomfort in the upper abdomen he notes over a week ago he was taken off his quarantine for Covid he notes that he does continue to have cough but denies fever chest pain shortness of breath he has not taken anything for his symptoms on arrival patient appears very anxious Related Data Home Medications Medication Instructions Recorded Confirmed clonidine HCl 02/11/20 fluoxetine [Prozac] 40 mg PO DAILY 02/11/20 lorazepam 1 mg PO BID PRN 02/11/20 tizanidine 2 mg PO TID PRN 02/11/20 Allergies Allergy/AdvReac Type Severity Reaction Status Date / Time No Known Allergies Allergy Verified 05/24/21 06:50 Review of Systems Review of Systems: All systems reviewed & are unremarkable except as noted in HPI and below PMFSH Past Medical History Medical History Anxiety Pulmonary embolism Surgical History Surgical History No pertinent past surgical history Social History Social History Smoking status: Never smoker Gender identity (if verbalized by the patient): Male Exam Narrative: GENERAL: Well-appearing, well-nourished, and in no acute distress. HEAD: Normocephalic, atraumatic. EYES: PERRLA and EOMI. ENT: Nares clear, no rhinorrhea or epistaxis. Mucous membranes moist. Oropharynx without tonsillar hypertrophy exudate or other lesions. Bilateral TMs pearly caputo nonbulging CHEST: Clear to auscultation. No respiratory distress. No wheezes rales or rhonchi HEART: Regular rate and rhythm. No murmur heard. Normal peripheral pulses. ABDOMEN: Soft, epigastric tenderness to palpation no rebound or guarding, nondistended EXTREMITIES: Normal range of motion. No edema. SKIN: Warm, dry, no rash. NEURO: No focal deficits. Alert and oriented x3. PSYCH: Anxious appearing. Course Course Emergency Course: Patient presented with GI upset he is currently getting over COVID-19 he was given medications with improvement to include fluids patient afebrile nontoxic. No hypoxemia patient will be placed on a Z-John for his pneumonia he will also be given some antacid for his abdominal discomfort he will see primary care tomorrow in clinic he is aware of discussion with primary care in agreement with the treatment plam ABCs and vital signs is intact and stable Consultations Consultation #1: Discussed case with primary care doctor Dr. Santiago who will be seeing the patient in clinic tomorrow Date: 05/31/21 Time: 12:47 Vital Signs Vital signs: Vital Signs Temperature 98.3 F 05/31/21 09:53 Pulse Rate 89 05/31/21 09:53 Respiratory Rate 20 05/31/21 09:53 Blood Pressure 133/83 05/31/21 09:53 Pulse Oximetry 98 05/31/21 09:53 Temperature 98.3 F 05/31/21 09:53 Pulse Rate 89 05/31/21 09:53 Respiratory Rate 20 05/31/21 09:53 Blood Pressure 133/83 05/31/21 09:53 Pulse Oximetry 98 05/31/21 09:53 Medical Decision Making [facility] Narrative Medical decision making narrative: Patient with pneumonia could be viral or developing pneumonia secondary to his COVID-19 diagnosis he also has GI upset which could be related to the pneumonia will be started on an acid as instructed by his primary care and will follow in clinic tomorrow he has no vomiting diarrhea he is afebrile nontoxic-appearing nondistressed and fel
[2021-05-31 11:15] LABS: Add Urine Microscopic? YES; Appearance Urine Clear (Clear); Bilirubin Urine Negative (Negative); Blood Urine Negative (Negative); Color Urine Yellow (Yellow); Glucose Urine UA Negative (Negative); Ketones Urine 1+ mg/dL (Negative); Leukocyte Esterase Ur Negative LEU/UL (Negative); Mucus Urine Rare /lpf; Nitrate Urine Negative (Negative); Protein Urine Negative (Negative); RBC Urine 0-2 /hpf (0-2); Specific Grav Ur 1.015 (1.001-1.035); Urobilinogen Urine Negative mg/dL (<2.0); WBC Urine 0-3 /hpf
[2021-05-31] MEDS: SODIUM CHLORIDE 0.9% IV 1,000 ML 999 ML IV CONT (11:15)
[2021-05-31 11:21] LABS: Alanine Aminotransferase 37 U/L (4-50); Alkaline Phosphatase 128 U/L (38-126); Anion Gap 13 mmol/L (8-16); Aspartate Amino Transferase 39 U/L (17-59); Bilirubin,Total 1.4 mg/dL (0.2-1.3); Blood Urea Nitrogen 14 mg/dL (9-20); Calcium 9.7 mg/dL (8.4-10.2); Carbon Dioxide 15 mmol/L (22-30); Chloride 109 mmol/L (98-107); Estimated CRCL calculation 117 ml/min; Estimated Glomerular Filt Rate > 60; Glucose 101 mg/dL (65-110); Lipase 109 U/L (23-300); Potassium 3.3 mmol/L (3.4-5.0); Sodium 137 mmol/L (137-145)
[2021-05-31 13:16] LABS: Eosinophils Absolute Manual 0.08 K/mm3 (0.02-0.5); Eosinophils Percent Manual 1 % (0-4); Lymphocytes Absolute Manual 2.95 K/mm3 (1.1-4.5); Monocytes Absolute Manual 0.73 K/mm3 (0.1-0.90); Monocytes Percent Manual 9 % (3-9); Neutrophils Percent Manual 54 % (46-73); Total Cells Counted 100
[2021-05-31 13:17] LABS: Atypical Lymphocytes Present; Platelet Estimate Increased (Adequate)
== END 2021-05-31 13:29 | disposition home or self-care (01) ==
PROVIDERS: Emergency Medicine Emergency Medical Services; Emergency Provider Emergency Medicine; PCP Internal Medicine
DX: J18.9 Pneumonia, unspecified organism (principal); R10.13 Epigastric pain; Z86.16 Personal history of COVID-19; F41.9 Anxiety disorder, unspecified; Z86.711 Personal history of pulmonary embolism
CPT/HCPCS: 36415; 71045; 80053; 81001; 83690; 85025; 96365; 96375; 99284; J0131; J2060; J7030

== ENCOUNTER 2021-06-01 22:48 | Emergency (ER) | payer OTHER, SELFPAY ==
--- NOTE | ~2021-06-01 | CT_ITS ---
EXAMINATION: CTA chest PE protocol DATE: 06/01/2021 23:38 INDICATION: Left-sided chest pain. Anxiety. TECHNIQUE: Computed tomography (CT) pulmonary angiogram of the chest was performed with 100 mL Omnipa que-350 intravenous contrast. Additional 3D reconstructions utilizing coronal maximum intensity proje ction (MIP) were performed. Automated exposure control and iterative reconstruction technique were em ployed. The dose-length product was 453.07 mGy-cm. COMPARISON: None FINDINGS: Excellent contrast opacification of the pulmonary arteries. There is mild streak artifact from dense contrast in the superior vena cava and right atrium. Minimal scattered respiratory motion artifact wh ich does not significantly limit evaluation. No pulmonary embolism. No pneumonia, pulmonary edema, pl eural effusion or pneumothorax. Heart size is normal. No pericardial effusion. Thoracic aorta is norm al in caliber with no dissection. Diffuse hepatic steatosis with focal sparing along the gallbladder fossa and more focal fat along the ligamentum teres. Mild upper thoracic levoscoliosis. IMPRESSION: 1. No pulmonary embolism or other acute cardiopulmonary disease. Reviewed, dictated and finalized at location A. D GAUGER
--- NOTE | ~2021-06-01 | XR_ITS ---
EXAMINATION: XR chest 2V DATE: 06/01/2021 23:15 INDICATION: Shortness of breath and left-sided chest pain TECHNIQUE: PA and lateral views of the chest were obtained. COMPARISON: Chest radiograph dated 05/31/2021 FINDINGS: The lungs remain clear with no focal airspace opacities, pulmonary edema, pleural effusion or pneumot horax. The cardiomediastinal silhouette is normal. Mild upper thoracic levocurvature. IMPRESSION: 1. No acute cardiopulmonary disease. Reviewed, dictated and finalized at location A. RING AND EVENTS MANAGER
[2021-06-01 22:51] VITALS: BP 139/94; PULSE 68; RESP 24; TEMP 36.4; O2SAT 99
--- NOTE | 2021-06-01 22:54 | ECG_ITS ---
Measurements Intervals [place] Rate: 74 P: 31 MD: 146 QRS: 37 QRSD: 89 T: 44 QT: 388 QTc: 431 Interpretive Statements SINUS RHYTHM INCOMPLETE RIGHT BUNDLE BRANCH BLOCK MINIMAL Q WAVES- ANTEROLAT/HIGH LAT LEADS BORDERLINE ST-T WAVE ABNORMALITY- ANTERIOR LEADS BASELINE ARTIFACT- I, II, III, AVR, AVL, AVF, V1, V4-V6 BORDERLINE ECG Electronically Signed On 06-02-2021 18:15:51 [employer]UDIT[employer] by Arturo Ragsdale D.O.
[2021-06-01 23:05] LABS: Basophils Percent Auto 0.5 % (0.2-1.2); Eosinophils Absolute Auto 0.1 K/mm3 (0-0.3); Eosinophils Percent Auto 1.1 % (0-4.4); Hematocrit 41.1 % (42.0-52.0); Hemoglobin 13.8 g/dL (14.0-18.0); Immature Granulocyte Absolute 0.03 K/mm3 (0.00-0.031); Immature Granulocyte Percent A 0.4 % (0-0.5); Lymphocytes Absolute Auto 3.96 K/mm3 (0.9-3.2); Lymphocytes Percent Auto 48.2 % (18.3-44.2); Mean Corpuscular HGB Conc 33.6 g/dl (32-36); Mean Corpuscular Hemoglobin 25.8 pg (26-34); Mean Corpuscular Volume 76.8 fl (80-100); Mean Platelet Volume 9.3 fl (7.4-10.4); Monocytes Absolute Auto 0.7 K/mm3 (0.1-0.6); Monocytes Percent Auto 8.5 % (2.6-8.5); Neutrophils Absolute Auto 3.4 K/mm3 (1.3-6.7); Neutrophils Percent Auto 41.3 % (45.5-73.1); Platelet Count Result 443 k/mm3 (150-375); Red Blood Count 5.35 M/mm3 (4.6-6.20); Red Cell Distribution Width 14.7 % (11.5-14.5); White Blood Count 8.2 K/mm3 (4.5-10.0)
[2021-06-01 23:13] LABS: Prothrombin Time 13.2 Seconds (11.1-14.7)
[2021-06-01 23:14] LABS: Partial Thromboplastin Time 25.1 SECONDS (22.3-36.8)
--- NOTE | 2021-06-01 23:14 | ED.ANXIETY ---
HPI - Anxiety General Chief Complaint: Anxiety Stated Complaint: keeps passing out Time Seen by Provider: 06/01/21 22:50 Source: patient Mode of arrival: ambulatory Limitations: no limitations History of Present Illness HPI narrative: Patient presents to ER with c/o ongoing anxiety, chest discomfort that radiates into left shoulder. Symptoms have been present for several hours. Patient seen at ER yesterday for anxiety, and generalized abdominal discomfort. Recently dx with COVID, and continues to have an associated cough. Has a hx of PE in 2013. Reports has daily, poorly managed anxiety for which he takes hydroxyzine. MD complaint: anxiety Related Data Home Medications Medication Instructions Recorded Confirmed clonidine HCl 02/11/20 fluoxetine [Prozac] 40 mg PO DAILY 02/11/20 lorazepam 1 mg PO BID PRN 02/11/20 tizanidine 2 mg PO TID PRN 02/11/20 Allergies Allergy/AdvReac Type Severity Reaction Status Date / Time No Known Allergies Allergy Verified 05/24/21 06:50 Review of Systems Review of Systems: CONSTITUTIONAL: Denies fever, chills, or sweats. EYES: Denies visual changes, redness, or discharge. ENT: Denies rhinorrhea, congestion, sore throat, or otalgia. CARDIOVASCULAR: Reports left anterior chest wall pain. Denies palpitations, or edema. RESPIRATORY: Reports cough. GASTROINTESTINAL: Denies abdominal pain, nausea, vomiting, or diarrhea. GENITOURINARY: Denies dysuria or hematuria. SKIN: Denies rash or itching. MUSCULOSKELETAL: Denies back pain, joint pain, or myalgia. NEUROLOGIC: Denies headache, numbness, dizziness, or weakness. PSYCHIATRIC: Anxious. All systems reviewed & are unremarkable except as noted in HPI and below PMFSH Past Medical History Medical History Anxiety Pulmonary embolism Surgical History Surgical History No pertinent past surgical history Social History Social History Smoking status: Never smoker Gender identity (if verbalized by the patient): Male Exam Narrative: GENERAL: Well-appearing, well-nourished, and in no acute distress. HEAD: Normocephalic, atraumatic. EYES: PERRLA and EOMI. ENT: Nares clear, no rhinorrhea or epistaxis. Mucous membranes moist. Oropharynx without tonsillar hypertrophy exudate or other lesions. Bilateral TMs pearly caputo nonbulging NECK: Supple. No adenopathy or masses. No carotid bruits or JVD CHEST: Clear to auscultation. No respiratory distress. No wheezes rales or rhonchi HEART: Regular rate and rhythm. No murmur heard. Normal peripheral pulses. ABDOMEN: Soft, nontender, nondistended, normal active bowel sounds. EXTREMITIES: Normal range of motion. No edema. SKIN: Warm, dry, no rash. NEURO: No focal deficits. Alert and oriented x3. PSYCH: Normal mood and affect. Anxious Course Vital Signs Vital signs: Vital Signs Temperature 36.4 C L 06/01/21 22:51 Pulse Rate 68 06/01/21 22:51 Respiratory Rate 24 H 06/01/21 22:51 Blood Pressure 139/94 H 06/01/21 22:51 Pulse Oximetry 99 06/01/21 22:51 Temperature 36.4 C L 06/01/21 22:51 Pulse Rate 68 06/01/21 22:51 Respiratory Rate 24 H 06/01/21 22:51 Blood Pressure 139/94 H 06/01/21 22:51 Pulse Oximetry 99 06/01/21 22:51 MDM - Anxiety Lab Data Result diagrams: 06/01/21 22:57 06/01/21 22:57 Labs: Lab Results 06/01/21 06/01/21 06/01/21 Range/Units 22:56 22:57 22:57 WBC 8.2 (4.5-10.0) K/mm3 RBC 5.35 (4.6-6.20) M/mm3 Hgb 13.8 L (14.0-18.0) g/dL Hct 41.1 L (42.0-52.0) % MCV 76.8 L (80-100) fl MCH 25.8 L (26-34) pg MCHC 33.6 (32-36) g/dl RDW 14.7 H (11.5-14.5) % Plt Count 443 H (150-375) k/mm3 MPV 9.3 (7.4-10.4) fl Immature Gran % (Auto) 0.4 (0-0.5) % Neut % (Auto) 41.3 L (45.5-73.1) % Lymph % (
[2021-06-01 23:21] LABS: Alanine Aminotransferase 36 U/L (4-50); Albumin Level 4.8 g/dL (3.5-5.1); Alkaline Phosphatase 120 U/L (38-126); Anion Gap 15 mmol/L (8-16); Aspartate Amino Transferase 34 U/L (17-59); Bilirubin,Total 1.3 mg/dL (0.2-1.3); Blood Urea Nitrogen 16 mg/dL (9-20); Calcium 9.8 mg/dL (8.4-10.2); Carbon Dioxide 14 mmol/L (22-30); Chloride 110 mmol/L (98-107); Estimated CRCL calculation 116 ml/min; Estimated Glomerular Filt Rate > 60; Glucose 108 mg/dL (65-110); Lipase 140 U/L (23-300); Potassium 2.7 mmol/L (3.4-5.0); Sodium 139 mmol/L (137-145)
[2021-06-01 23:25] LABS: Troponin I < 0.012 ng/mL (0.000-0.034)
[2021-06-01] MEDS: POTASSIUM CHLORIDE 20 MEQ TABLET 40 MEQ PO (23:42)
[2021-06-01] MEDS: ASPIRIN 81 MG CHEWABLE TABLET 324 MG PO (23:43)
[2021-06-01] MEDS: LORazepam INJ (*CRX) 2 MG/ML VIAL 1 MG IV PUSH (23:43)
[2021-06-02 00:48] LABS: D Dimer 0.27 ug/mL (<0.48)
[2021-06-02 01:13] VITALS: BP 135/87; PULSE 80; RESP 20; O2SAT 99
== END 2021-06-02 01:13 | disposition home or self-care (01) ==
PROVIDERS: Emergency Medicine; Emergency Provider Nurse Practitioner Family; PCP Internal Medicine
DX: F41.0 Panic disorder [episodic paroxysmal anxiety] (principal); Z86.16 Personal history of COVID-19; Z86.711 Personal history of pulmonary embolism; I45.10 Unspecified right bundle-branch block; R94.31 Abnormal electrocardiogram [ECG] [EKG]
CPT/HCPCS: 36415; 71046; 71275; 80053; 83690; 84484; 85025; 85380; 85610; 85730; 93005; 96374; 99284; A9270; J2060; Q9967

== ENCOUNTER 2021-06-04 16:24 | Outpatient (CLI) | payer OTHER, SELFPAY ==
[2021-06-04 17:36] LABS: Alanine Aminotransferase 35 U/L (4-50); Alkaline Phosphatase 125 U/L (38-126); Aspartate Amino Transferase 29 U/L (17-59); Bilirubin Indirect 1.6 mg/dL (0-1.1); Bilirubin,Total 1.8 mg/dL (0.2-1.3)
[2021-06-07 10:36] LABS: Albumin Level 4.9 g/dL (3.5-5.1)
== END 2021-06-04 16:25 | disposition home or self-care (01) ==
PROVIDERS: PCP Internal Medicine; Visit Provider Internal Medicine Gastroenterology
DX: R16.0 Hepatomegaly, not elsewhere classified (principal)
CPT/HCPCS: 36415; 82040; 82247; 82248; 84075; 84450; 84460

== ENCOUNTER 2021-06-07 11:50 | Emergency (ER) | payer OTHER, SELFPAY ==
[2021-06-07] VITALS (25 sets, daily range): BP systolic 113–136; BP diastolic 70–97; PULSE 56–71; RESP 15–24; TEMP 36.5; O2SAT 98–100
--- NOTE | 2021-06-07 12:29 | ECG_ITS ---
Measurements Intervals [place] Rate: 63 P: 49 ID: [id number] QRS: 44 QRSD: 85 T: 36 QT: 403 QTc: 414 Interpretive Statements SINUS RHYTHM T WAVE ABNORMALITY IN ANTERIOR LEADS- CONSIDER ISCHEMIA ABNORMAL ECG Electronically Signed On 06-07-2021 13:13:55 RN ACCESS by Arturo Ragsdale D.O.
[2021-06-07] MEDS: diazePAM (*CRX) 5 MG TABLET PO ×2 (12:44→14:03)
[2021-06-07 13:25] LABS: Alveolar/Arterial O2 Gradient 25.4 mmHg; Base Excess ABG -3.9 mEq/l (+/-2.0); Carboxyhemoglobin 0.5 % THb (0-2.0); Fractional Inspired Oxygen 21 %; HCO3 ABG 13.4 mEq/l (22.0-26.0); Methemoglobin ABG 0.2 %THb (0-1.5); Oxygen Saturation ABG 98.8 % (95.0-100.0); Oxyhemoglobin 97.6 % THb (90.0-100.0); PO2 ABG 108.5 mmHg (80.0-100.0); PO2 FiO2 Ratio Arterial Blood 5.17 %; Reduced Hemoglobin 1.7 %THb (0-5.0); Total Hemoglobin 14.5 g/dL (12.0-18.0)
[2021-06-07 13:26] LABS: Device ROOM AIR; Modified Allen's Test Pass; PCO2 ABG 13.2 mmHg (35.0-45.0); Site Drawn LEFT BRACHIAL; pH ABG 7.626 (7.350-7.450)
[2021-06-07 13:30] LABS: Basophils Absolute Auto 0.1 K/mm3 (0.0-0.1); Basophils Percent Auto 0.7 % (0.2-1.2); Eosinophils Absolute Auto 0.1 K/mm3 (0-0.3); Eosinophils Percent Auto 0.9 % (0-4.4); Hematocrit 42.2 % (42.0-52.0); Hemoglobin 14.4 g/dL (14.0-18.0); Immature Granulocyte Absolute 0.02 K/mm3 (0.00-0.031); Immature Granulocyte Percent A 0.3 % (0-0.5); Lymphocytes Absolute Auto 2.67 K/mm3 (0.9-3.2); Lymphocytes Percent Auto 39.1 % (18.3-44.2); Mean Corpuscular HGB Conc 34.1 g/dl (32-36); Mean Corpuscular Hemoglobin 26.3 pg (26-34); Mean Platelet Volume 9.5 fl (7.4-10.4); Monocytes Absolute Auto 0.5 K/mm3 (0.1-0.6); Monocytes Percent Auto 7.8 % (2.6-8.5); Neutrophils Absolute Auto 3.5 K/mm3 (1.3-6.7); Neutrophils Percent Auto 51.2 % (45.5-73.1); Platelet Count Result 466 k/mm3 (150-375); Red Blood Count 5.48 M/mm3 (4.6-6.20); Red Cell Distribution Width 15.3 % (11.5-14.5); White Blood Count 6.8 K/mm3 (4.5-10.0)
[2021-06-07 13:32] LABS: Alanine Aminotransferase 42 U/L (4-50); Albumin Level 4.9 g/dL (3.5-5.1); Alkaline Phosphatase 135 U/L (38-126); Anion Gap 14 mmol/L (8-16); Aspartate Amino Transferase 33 U/L (17-59); Bilirubin,Total 1.6 mg/dL (0.2-1.3); Blood Urea Nitrogen 12 mg/dL (9-20); Calcium 10.3 mg/dL (8.4-10.2); Carbon Dioxide 13 mmol/L (22-30); Chloride 115 mmol/L (98-107); Estimated CRCL calculation 120 ml/min; Estimated Glomerular Filt Rate > 60; Glucose 94 mg/dL (65-110); Potassium 3.5 mmol/L (3.4-5.0); Sodium 142 mmol/L (137-145)
[2021-06-07 13:43] LABS: Troponin I < 0.012 ng/mL (0.000-0.034)
--- NOTE | 2021-06-07 13:57 | ED.CHESTPAIN ---
HPI - Chest Pain General Chief Complaint: Chest Pain Stated Complaint: chest pain, light headed Time Seen by Provider: 06/07/21 12:14 Source: patient, RN notes reviewed and old records reviewed Mode of arrival: ambulatory Limitations: no limitations History of Present Illness HPI narrative: This is a 21 year old male with history of anxiety who presents for evaluation of palpitations, heart racing and chest pain. Patient has been seen multiple times over past 2 months for similar symptoms and anxiety. He was most recently seen 6 days ago for same symptoms. He had labs and CTA PE performed. He has negative d dimer with a normal CTA chest as well. Patient states he states last night he felt like his heart was pounding and beating fast. He states he was able to calm himself to get heart to stop pounding. Today he is also complaining of intermittent left lower chest pain. He states he stopped smoking marijuana 3 weeks ago. He reports sleeping poorly and decreased appetite. He is not suicidal or homicidal. Related Data Home Medications Medication Instructions Recorded Confirmed clonidine HCl 06/07/21 doxepin 06/07/21 famotidine 06/07/21 gabapentin 06/07/21 hydroxyzine HCl 06/07/21 loratadine mg 06/07/21 meloxicam 06/07/21 omeprazole 06/07/21 paroxetine HCl mg PO 06/07/21 propranolol 06/07/21 quetiapine 06/07/21 quetiapine 06/07/21 06/07/21 Allergies Allergy/AdvReac Type Severity Reaction Status Date / Time No Known Allergies Allergy Verified 05/24/21 06:50 Review of Systems Review of Systems: All systems reviewed & are unremarkable except as noted in HPI and below Constitutional: Constitutional: Denies chills, Denies fatigue and Denies fever(s) ENT: Denies sore throat Cardiovascular: Cardiovascular: Reports rapid heart rate, Denies radiating jaw, neck or arm pain and Denies slow heart rate Respiratory: Respiratory: Denies cough and Denies wheezing Gastrointestinal: Gastrointestinal: Denies abdominal pain and Denies nausea PMFSH Past Medical History Medical History Anxiety Pulmonary embolism Surgical History Surgical History No pertinent past surgical history Social History Social History Smoking status: Never smoker Gender identity (if verbalized by the patient): Male Exam Const: General: no acute distress and alert Orientation/consciousness: patient oriented x3 Eyes: EOM: EOMs intact bilaterally Resp: Effort & Inspection: normal respiratory effort and no retractions Auscultation: clear to auscultation bilaterally Cardio: Rate: regular rate Rhythm: regular rhythm Heart sounds: no murmurs GI: GI Palp: Yes Soft to palpation, No Tenderness to palpation present (GI) and No Guarding due to palpation present (GI) Auscultation: normal bowel sounds Back/Spine/Pelvis: Back: no CVA tenderness Skin: General skin exam: normal color Rashes: no rashes Neuro: General: patient oriented x3, moves all extremities and CN's II-XI intact bilaterally Extrem: General: normal to inspection Psych: Mental Status: mental status grossly normal Affect: normal affect Course Reevaluation(s) Reevaluation #1: I discussed with patient test appear that he is hyperventilating causing respiratory alkalosis. He reports he feels better. I reviewed his past visits . THis is likely anxiety. His appointment with PCP on monday Date: 06/07/21 Time: 15:51 Vital Signs Vital signs: Vital Signs Temperature 97.7 F 06/07/21 12:00 Pulse Rate 70 06/07/21 12:00 Respiratory Rate 24 H 06/07/21 12:00 Blood Pressure 136/77 06/07/21 12:00 Pulse Oximetry 100 06/07/21 12:00 Temperature 97.7 F 06/07/21 12:00 Pulse Rate 60 06/07/21 15:46 Respiratory Rate 17 06/07/21 15:46 Blood Pressure 135/97 H
[2021-06-07 14:19] LABS: Add Urine Microscopic? YES; Appearance Urine Clear (Clear); Bilirubin Urine Negative (Negative); Blood Urine Negative (Negative); Color Urine Straw (Yellow); Glucose Urine UA Negative (Negative); Ketones Urine 1+ mg/dL (Negative); Leukocyte Esterase Ur Negative LEU/UL (Negative); Nitrate Urine Negative (Negative); Protein Urine Negative (Negative); Specific Grav Ur 1.008 (1.001-1.035)
[2021-06-07 14:31] LABS: Amphetamine Screen Urine Negative (Negative); Barbiturate Screen Urine Negative (Negative); Benzodiazepines Screen Urine Negative (Negative); Cannabinoid Screen Urine Positive (Negative); Cocaine Screen Urine Negative (Negative); Methadone Screen Urine Negative (Negative); Opiate Screen Urine Negative (Negative); Phencyclidine Screen Urine Negative (Negative)
== END 2021-06-07 16:03 | disposition home or self-care (01) ==
PROVIDERS: Emergency Provider General Practice; PCP Internal Medicine
DX: F45.8 Other somatoform disorders (principal); R07.89 Other chest pain; F41.9 Anxiety disorder, unspecified; Z86.711 Personal history of pulmonary embolism; R94.31 Abnormal electrocardiogram [ECG] [EKG]
CPT/HCPCS: 36415; 36600; 80053; 80307; 81001; 82375; 82805; 83050; 84443; 84484; 85025; 93005; 99284; A9270

== ENCOUNTER 2021-06-16 07:50 | Outpatient (CLI) | payer OTHER, SELFPAY ==
--- NOTE | ~2021-06-16 | US_ITS ---
EXAMINATION: US right upper quadrant DATE: 06/16/2021 08:18 INDICATION: Hepatomegaly TECHNIQUE: Multiple grayscale and Doppler ultrasound images of the abdomen were obtained. COMPARISON: None available FINDINGS: Bowel gas obscures visualization of the pancreas. The visualized portions of the pancreas a re unremarkable. The liver demonstrates increased echogenicity, heterogenous echotexture, and decreas ed through transmission. No surface nodularity. Normal hepatopetal flow in the main portal vein. The gallbladder is normal with no abnormal wall thickening, pericholecystic fluid or stones. The dilated common bile duct measures 9 mm. There was no sonographic Gomez sign. IMPRESSION: 1. Diffuse hepatic steatosis. 2. Dilated common bile duct of unclear etiology. Consider MRCP. Reviewed, dictated and finalized at location D. MAKER
== END 2021-06-16 07:51 | disposition home or self-care (01) ==
LOC: ANHIMG 07:57
PROVIDERS: PCP Internal Medicine; Visit Provider Internal Medicine Gastroenterology
DX: R16.0 Hepatomegaly, not elsewhere classified (principal)
CPT/HCPCS: 76705